=== PATIENT | female | born 1950 | race American Indian/Alaskan Native ===

== ENCOUNTER 2019-06-03 02:43 | Observation (INO) | payer MEDICARE ==
[2019-06-03] MEDS ORDERED: NITROGLYCERIN 0.4 MG TAB SUBL SL ONE (03:13)
--- NOTE | 2019-06-03 03:14 | Emergency Department Report ---
ED General Adult HPI - General Chief complaint: Allergic Reaction Stated complaint: ALLERGIC REACTION Time Seen by Provider: 06/03/19 03:01 Source: patient, EMS (verbal report received from EMS. EMS documentation not available at time of chart dictation ), RN notes reviewed Mode of arrival: Stretcher Limitations: No Limitations - History of Present Illness Initial comments: Primary care Dr.: Jamie Mock Past medical history: Hypertension, on lisinopril, question GERD/gastritis This is a pleasant 68-year-old female who is not known to this provider previously. She is brought to the hospital by emergency medical services for nontraumatic and resolving tongue swelling. Tongue swelling started at 12:30 in the morning. Emergency medical services gave the patient Benadryl, steroids, and subcutaneous epinephrine. Prior to tongue swelling, the patient states she was not having any complaints and reports that she was in her usual state of health. She indicates she was not having chest pain. X She denies DVT, and pulmonary embolism risk factors. Her swelling is improved, however, after receiving subcutaneous epinephrine, she developed central chest pressure, which is nonradiating. The patient reports no recent cardiac stress test or catheterization. As far she knows, her EKG is "normal." -: Sudden Location: mouth, chest Radiation: non-radiation Quality: constant Improves with: medication Worsens with: medication - Related Data Home Medications Medication Instructions Recorded Confirmed Last Taken Aspirin [Adult Aspirin] 81 mg PO DAILY 06/03/19 06/03/19 1 Day Ago ~06/02/19 Calcium Carbonate/Vitamin D3 1 tab PO DAILY 06/03/19 06/03/19 1 Day Ago [Calcium 600 with Vit D Chew Tb] ~06/02/19 Dicyclomine [Bentyl] 20 mg PO DAILY 06/03/19 06/03/19 1 Day Ago ~06/02/19 Loratadine 10 mg PO DAILY 06/03/19 06/03/19 1 Day Ago ~06/02/19 Meclizine [Antivert] 1 tab PO Q8HR 06/03/19 06/03/19 1 Day Ago ~06/02/19 PANTOPRAZOLE SODIUM (nf) [Protonix 40 tab PO DAILY 06/03/19 06/03/19 1 Day Ago GRANULES] ~06/02/19 Vitamin E 400 unit PO DAILY 06/03/19 06/03/19 1 Day Ago ~06/02/19 dilTIAZem HCl [Diltiazem 24Hr ER 240 mg PO DAILY 06/03/19 06/03/19 1 Day Ago (Cd)] ~06/02/19 Allergies Allergy/AdvReac Type Severity Reaction Status Date / Time codeine Allergy Rash Verified 06/03/19 02:58 lisinopril Allergy Angioedema Verified 06/03/19 02:59 ED Review of Systems ROS: Stated complaint: ALLERGIC REACTION Other details as noted in HPI Constitutional: denies: fever Eyes: denies: eye discharge ENT: other (as per history of present illness). denies: ear pain, throat pain, dental pain, hearing loss, epistaxis, congestion Respiratory: denies: cough Cardiovascular: chest pain Gastrointestinal: denies: vomiting Genitourinary: denies: dysuria Musculoskeletal: denies: as per HPI Skin: denies: lesions Neurological: denies: weakness Psychiatric: anxiety Hematological/Lymphatic: denies: easy bleeding ED Past Medical Hx - Past Medical History Hx Hypertension: Yes Hx CVA: Yes - Surgical History Additional Surgical History: hysterectomy, hernia repair, cataracts both eyes - Social History Smoking Status: Never Smoker Substance Use Type: None - Medications Home Medications: Home Medications Medication Instructions Recorded Confirmed Last Taken Type Aspirin [Adult Aspirin] 81 mg PO DAILY 06/03/19 06/03/19 1 Day Ago History ~06/02/19 Calcium Carbonate/Vitamin D3 1 tab PO DAILY 06/03/19 06/03/19 1 Day Ago History [Calcium 600 with Vit D Chew Tb] ~06/02/19 Dicyclomine [Bentyl] 20 mg PO DAILY 06/03/19 06/03/19 1 Day Ago History ~06/02/19 Loratadine 10 mg PO DAILY 06/03/19 06/03/19 1 Day Ago History ~06/02/19 Meclizine [Antivert] 1 tab PO Q8HR 06/03/19 06/03/19 1 Day Ago History ~06/02/19 PANTOPRAZOLE SODIUM (nf) [Protonix 40 tab PO DAILY 06/03/19 06/03/19 1 Day Ago History GRANULES] ~06/02/19 Vitamin E 400 unit PO DAILY 06/03/19 06/03/19 1 Day Ago History ~06/02/19 dilTIAZem HCl [Diltiazem 24Hr ER 240 mg PO DAILY 06/03/19 06/03/19 1 Day Ago History (Cd)] ~06/02/19 ED Physical Exam - General Limitations: No Limitations General appearance: alert, in no apparent distress - Head Head exam: Present: atraumatic, normocephalic - Eye Eye exam: Present: normal appearance, EOMI. Absent: nystagmus - ENT ENT exam: Present: normal orophraynx, mucous membranes moist, normal external ear exam, other (the patient is speaking in full sentences. There is no stridor or dysphonia. Left-sided lingual swelling is noted). Absent: normal exam - Neck Neck exam: Present: normal inspection, full ROM. Absent: tenderness, meningismus - Respiratory Respiratory exam: Present: normal lung sounds bilaterally. Absent: respiratory distress - Cardiovascular Cardiovascular Exam: Present: regular rate, normal rhythm, normal heart sounds. Absent: bradycardia, tachycardia, irregular rhythm, systolic murmur, diastolic murmur, rubs, gallop - GI/Abdominal GI/Abdominal exam: Present: soft. Absent: distended, tenderness, guarding, rebound, rigid, pulsatile mass - Extremities Exam Extremities exam: Present: normal inspection, full ROM, other (2+ pulses noted in the bilateral upper, lower extremities. There is no long bone tenderness. Musculoskeletal compartments are soft. The pelvis is stable.). Absent: pedal edema, joint swelling, calf tenderness - Back Exam Back exam: Present: normal inspection, full ROM. Absent: tenderness, CVA tenderness (R), CVA tenderness (L), paraspinal tenderness, vertebral tenderness - Neurological Exam Neurological exam: Present: alert, other (there is no facial droop. The tongue is midline. Extraocular movements are intact bilaterally. Patient speaking in full complete sentences. Shoulder shrug is intact bilaterally. Hearing is grossly intact bilaterally. Visual acuity intact to finger counting and color perception at a close distance. 5/5 strength 4 extremities. Sensation intact to light touch in 4 extremities.). Absent: motor sensory deficit - Psychiatric Psychiatric exam: Present: anxious - Skin Skin exam: Present: warm, dry, intact, normal color. Absent: rash ED Course Vital Signs 06/03/19 06/03/19 06/03/19 02:52 03:00 03:10 Temperature 98 F Pulse Rate 90 94 H 92 H Respiratory 18 26 H Rate Blood Pressure 170/80 170/80 O2 Sat by Pulse 98 98 Oximetry 06/03/19 06/03/19 03:34 04:00 Temperature Pulse Rate 92 H 96 H Respiratory 18 Rate Blood Pressure 170/80 127/74 O2 Sat by Pulse 95 Oximetry - Reevaluation(s) Reevaluation #1: 06/03/19 03:35 Parental diagnosis, including not limited to: LEAH inhibitor related angioedema, acute coronary syndrome, medication-related chest pain, GERD, gastritis, hiatal hernia, pneumonia Assessment and plan: 68-year-old female with 2 complaints Complaint #1, tongue swelling, likely related to LEAH inhibitor medication. She is phonating in complete sentences, saturating well, and protecting airway. She reports her tongue swelling is already improving. We will give the patient Pepcid, placed on a cancer center director, and observe. Complaint #2, chest discomfort after receiving subcutaneous epinephrine. She is hypertensive, with equal pulses in upper and lower extremities. She reports no DVT or pulmonary embolism risk factors and is low risk by well's criteria. Her EKG today is abnormal without prior for comparison. Chest pain in may be related to epinephrine administration, therefore, given advanced age, ca rdiovascular risk factor profile, the fact that the patient is moderate risk by heart score for major adverse cardiac event, we will admit the patient to the medical service for observation, and cardiac risk stratification. We discussed this with the patient who verbalizes understanding, and who is amenable to this plan of care. Reevaluation #2: 06/03/19 04:28 Laboratory studies reviewed and appreciated. Potassium supplementation ordered. Patient resting comfortably and in no acute distress. Hospital physician, Dr. Marshall accepted the patient to the medical service for airway observation, and cardiac risk stratification. ED Medical Decision Making - Lab Data Result diagrams: 06/03/19 03:29 06/03/19 03:29 Vital Signs 06/03/19 06/03/19 02:52 03:10 Temperature 98 F Pulse Rate 90 92 H Respiratory 18 Rate Blood Pressure 170/80 O2 Sat by Pulse 98 Oximetry - EKG Data -: EKG Interpreted by Nh EKG shows normal: sinus rhythm Rate: normal - EKG Data 06/03/19 03:37 There is no prior EKG available for comparison. This is a sinus rhythm, with a left axis deviation, the MD interval is 182 ms, the QTC is prolonged, there is a left axis deviation, there is a left bundle branch block noted, premature complex noted, EKG not consistent with Sgarbarossa criteris for stemi - Radiology Data Radiology results: image reviewed interpreted by me: X-ray of the chest is negative for acute disease. Critical care attestation.: If time is entered above; I have spent that time in minutes in the direct care of this critically ill patient, excluding procedure time. ED Disposition Clinical Impression: Abnormal EKG, Acute chest pain, Angioedema Disposition: OP ADMIT IP TO THIS HOSP Is pt being admited?: Yes Does the pt Need Aspirin: Yes Condition: Stable Instructions: Chest Pain (ED) Referrals: PRIMARY CARE, [Primary Care Provider] - 3-5 Days
[2019-06-03] MEDS ORDERED: PANTOPRAZOLE 40 MG INJ IV ONE (03:28)
[2019-06-03] MEDS ORDERED: FAMOTIDINE 20 MG/2 ML INJ IV ONE (03:29)
[2019-06-03 03:48] LABS: Hematocrit 39.1 % (30.3-42.9); Hemoglobin 12.6 gm/dl (10.1-14.3); Mean Corpuscular HGB Conc 32 % (30-34); Mean Corpuscular Volume 82 fl (79-97); Platelet Count 251 K/mm3 (140-440); Red Blood Count 4.74 M/mm3 (3.65-5.03); Red Cell Distribution Width 15.3 % (13.2-15.2)
[2019-06-03 03:58] LABS: INR 0.97 (0.87-1.13)
[2019-06-03 03:59] LABS: Partial Thromboplastin Time 24.7 Sec. (24.2-36.6)
[2019-06-03 04:13] LABS: Albumin 3.9 g/dL (3.9-5); Calcium 9.4 mg/dL (8.4-10.2)
[2019-06-03] MEDS ORDERED: MAGNESIUM SULFATE 2 GM/50 ML BAG IV ONE (04:21)
[2019-06-03] MEDS ORDERED: POTASSIUM CHLORIDE ER 20 MEQ TAB PO ONE (04:21)
[2019-06-03] MEDS ORDERED: ASPIRIN 81 MG TAB CHEW PO ONE (04:29)
[2019-06-03 04:52] LABS: Basophils % (Manual) 0 % (0.0-1.8); Total Cells Counted 100
[2019-06-03 04:53] LABS: Platelet Estimate Consistent w Auto; RBC Morphology Normal
[2019-06-03] MEDS: POTASSIUM CHLORIDE 10 MEQ 10 MEQ/100 ML BAG IV SCH ×4 (04:54→08:09)
--- NOTE | 2019-06-03 05:01 | XRay Report ---
CHEST 1 VIEW INDICATION / CLINICAL INFORMATION: Chest Pain. COMPARISON: None available. FINDINGS: SUPPORT DEVICES: None. HEART / MEDIASTINUM: Normal cardiac silhouette size with left ventricular configuration. LUNGS / PLEURA: No significant pulmonary or pleural abnormality. No pneumothorax. ADDITIONAL FINDINGS: No significant additional findings. IMPRESSION: 1. No acute pulmonary disease. Signer Name: Miroslava Vásquez MD Signed: 06/03/2019 4:57 AM Workstation Name: [id number]
[2019-06-03] MEDS ORDERED: ACETAMINOPHEN 325 MG TAB PO PRN (05:29)
[2019-06-03] MEDS ORDERED: MORPHINE 2 MG/1 ML INJ IV PRN (05:29)
[2019-06-03] MEDS ORDERED: ONDANSETRON 4 MG/2 ML INJ IV PRN (05:29)
--- NOTE | 2019-06-03 05:38 | History and Physical Report ---
History of Present Illness Date of examination: 06/03/19 History of present illness: 68-year-old history of hypertension LEAH inhibitor GERD comes emergency room with complaints of tongue swelling started at 12:15 AM. EMS was called and she was given steroids Benadryl, epinephrine in route to the hospital. On she came to the hospital she developed chest tightness which was constant, intensity without 10, no radiation, genitourinary failure exacerbated. 2. Denies any nausea vomiting, shortness, diaphoresis or palpitation Review Of Systems: Constitutional: no weight loss, fever, chills Ears, eyes, nose, mouth and throat: no nasal congestion, no nasal discharge, no sinus pressure, blurry vision, diplopia Neck: No neck pain or rigidity. Cardiovascular: No palpitations Respiratory: No shortness of breath, cough Gastrointestinal: No hematochezia, abdominal pain Genitourinary : no dysuria, frequency Musculoskeletal: no muscle ache , joint pain Integumentary: no rash, no pruritis Neurological: no parathesias, focal weakness Endocrine: no cold or heat intolerance, no polyuria or polydipsia Hematologic/Lymphatic: no easy bruising, no easy bleeding, no gland swelling Allergic/Immunologic: no urticaria, no angioedema. PAST MEDICAL HISTORY:hypertension GERD PAST SURGICAL HISTORY: Bladder tack, hysterectomy, cataract extraction FAMILY HISTORY:hypertension, diabetes SOCIAL HISTORY: Denies tobacco, drugs, alcohol Medications and Allergies Allergies Allergy/AdvReac Type Severity Reaction Status Date / Time codeine Allergy Rash Verified 06/03/19 02:58 lisinopril Allergy Angioedema Verified 06/03/19 02:59 Home Medications Medication Instructions Recorded Confirmed Last Taken Type Aspirin [Adult Aspirin] 81 mg PO DAILY 06/03/19 06/03/19 1 Day Ago History ~06/02/19 Calcium Carbonate/Vitamin D3 1 tab PO DAILY 06/03/19 06/03/19 1 Day Ago History [Calcium 600 with Vit D Chew Tb] ~06/02/19 Dicyclomine [Bentyl] 20 mg PO DAILY 06/03/19 06/03/19 1 Day Ago History ~06/02/19 Loratadine 10 mg PO DAILY 06/03/19 06/03/19 1 Day Ago History ~06/02/19 Meclizine [Antivert] 1 tab PO Q8HR 06/03/19 06/03/19 1 Day Ago History ~06/02/19 PANTOPRAZOLE SODIUM (nf) [Protonix 40 tab PO DAILY 06/03/19 06/03/19 1 Day Ago History GRANULES] ~06/02/19 Vitamin E 400 unit PO DAILY 06/03/19 06/03/19 1 Day Ago History ~06/02/19 dilTIAZem HCl [Diltiazem 24Hr ER 240 mg PO DAILY 06/03/19 06/03/19 1 Day Ago History (Cd)] ~06/02/19 Active Meds: Active Medications Acetaminophen (Tylenol) 650 mg PO Q4H PRN PRN Reason: Pain MILD(1-3)/Fever >100.5/MAHMOOD Diphenhydramine HCl (Benadryl) 25 mg IV Q6H PRN PRN Reason: Itching Enoxaparin Sodium (Enoxaparin) 40 mg SUB-Q QDAY@1000 KEILA Famotidine (Pepcid) 20 mg IV BID KEILA Potassium Chloride (Kcl 10meq/100ml) 10 meq in 100 mls @ 100 mls/hr IV Q1H KEILA Stop: 06/03/19 08:59 Last Admin: 06/03/19 04:54 Dose: 100 mls/hr Documented by: Methylprednisolone Sodium Succinate (Solu-Medrol) 125 mg IV Q6HR KEILA Morphine Sulfate (Morphine) 2 mg IV Q4H PRN PRN Reason: Pain, Moderate (4-6) Ondansetron HCl (Zofran) 4 mg IV Q8H PRN PRN Reason: Nausea And Vomiting Sodium Chloride (Sodium Chloride Flush Syringe 10 Ml) 10 ml IV BID KEILA Sodium Chloride (Sodium Chloride Flush Syringe 10 Ml) 10 ml IV PRN PRN PRN Reason: LINE FLUSH Exam - Physical Exam Narrative exam: General Apperance: The patient sitting in bed no acute distress HEENT: Normocephalic, atraumatic. Pupils equally round and reactive to light, extraocular movement intact, and no sclericterus or JVD or thyromegaly or nodule. Neck supple, no carotid bruit, mucous membranes moist, no exudate or erythema Heart: S1-S2, regular is rhythm Lungs: Clear to auscultation bilaterally, breathing comfortable Abdomen: Positive bowel sounds, soft, nontender, nondistended, no organomegaly Extremities: No edema cyanosis clubbing Skin: no rash, nodule, warm and dry Neuro:CN 2 -12 intact, motor/sensory intact, speech is fluent - Constitutional Vitals: Temp Pulse Resp BP Pulse Ox 98 F 89 18 127/74 95 06/03/19 02:52 06/03/19 04:30 06/03/19 04:30 06/03/19 04:30 06/03/19 04:30 Results - Labs CBC & Chem 7: 06/03/19 03:29 06/03/19 03:29 Labs: Abnormal lab results 06/03/19 06/03/19 Range/Units 03:29 03:29 WBC 19.6 H (4.5-11.0) K/mm3 MCH 27 L (28-32) pg RDW 15.3 H (13.2-15.2) % Seg Neuts % (Manual) 73.0 H (40.0-70.0) % Seg Neutrophils # Man 14.3 H (1.8-7.7) K/mm3 Monocytes # (Manual) 1.4 H (0.0-0.8) K/mm3 Potassium 3.0 L (3.6-5.0) mmol/L Carbon Dioxide 21 L (22-30) mmol/L Glucose 226 H (65-100) mg/dL Total Creatine Kinase 173 H (30-135) units/L - Imaging and Cardiology Chest x-ray: report reviewed Assessment and Plan Assessment Angioedema Chest pain Steroid induce leukocytosis Hypertension Plan Admit to medicine Start high dose steroids, benadryl and pepcid Check cardiac enzymes,stress test Potassium repleted DVT prophalaxis
[2019-06-03 06:26] LABS: BUN/Creatinine Ratio 13; Blood Urea Nitrogen 13 mg/dL (7-17); Calcium 9.4 mg/dL (8.4-10.2); Hemolysis Index 12
[2019-06-03 06:27] LABS: Creatine Kinase MB 2.1 ng/mL (0.0-4.0)
[2019-06-03] MEDS ORDERED: REGADENOSON 0.4 MG/5 ML INJ IV ONE ×2 (06:51→06:56)
[2019-06-03] MEDS ORDERED: POTASSIUM CHLORIDE 10 MEQ 10 MEQ/100 ML BAG IV ONE ×2 (07:03→08:09)
[2019-06-03 07:22] LABS: Hematocrit 38.7 % (30.3-42.9); Hemoglobin 12.5 gm/dl (10.1-14.3); Mean Corpuscular HGB Conc 32 % (30-34); Mean Corpuscular Volume 83 fl (79-97); Platelet Count 221 K/mm3 (140-440); Red Blood Count 4.67 M/mm3 (3.65-5.03); Red Cell Distribution Width 15.3 % (13.2-15.2)
[2019-06-03 08:20] LABS: Eosinophils % (Manual) 0 % (0.0-4.3); Monocytes % (Manual) 0 % (0.0-7.3); Total Cells Counted 100
[2019-06-03 08:21] LABS: Platelet Estimate Consistent w Auto; RBC Morphology Normal
[2019-06-03] MEDS ORDERED: methylPREDNISolone Sod Succinate 125 MG/2 ML INJ IV SCH (10:00)
[2019-06-03] MEDS ORDERED: ENOXAPARIN 40 MG/0.4 ML INJ SUB-Q SCH (10:00)
[2019-06-03] MEDS ORDERED: ENOXAPARIN 30 MG/0.3 ML INJ SUB-Q SCH (10:00)
[2019-06-03] MEDS ORDERED: diphenhydrAMINE 50 MG/ML VIAL IV PRN (10:00)
[2019-06-03] MEDS ORDERED: FAMOTIDINE 20 MG/2 ML INJ IV SCH ×2 (10:00)
[2019-06-03 12:44] VITALS: BP 142/80
--- NOTE | 2019-06-03 18:31 | Discharge Summary ---
Providers - Providers Date of Admission: 06/03/19 04:53 Date of discharge: 06/03/19 Attending physician: SLIME BARBOSA Primary care physician: ART PREPARATOR Hospitalization Reason for admission: Angioedema, atypical Condition: Stable Pertinent studies: CXR Hospital course: 68-year-old history of hypertension LEAH inhibitor GERD comes emergency room with complaints of tongue swelling started at 12:15 AM. EMS was called and she was given steroids Benadryl, epinephrine in route to the hospital. On she came to the hospital she developed chest tightness which was constant, intensity without 10, no radiation, genitourinary failure exacerbated.Denies any nausea vomiting, shortness, diaphoresis or palpitation. Lisinopril was held,managed with high dose steroids and antihistamines.symptoms resolved Evaluated by cardiology,no stress test as patient had severe hypokalemia,which was corrected per protocol. Today patient is comfortable,no new complaints. Stable at discharge. Discharge Diagnosis: --Angioedema: sec to Lisinopril. Received,steroids,antihistamine and lisinopril discontinued Symptoms resolved --Severe Hypokalemia: Replenished and corrected --Atypcal Chest pain : resolved,evaluated by cardiology . No stress test as pt had severe hypokalemia. Cleared for DC by cardiology, out patient evaluation --Steroid induced leukocytosis: Closely monitor --Hypertension: moderate control Stable at discharge. Disposition: DC-01 TO HOME OR SELFCARE Time spent for discharge: 32min Core Measure Documentation - Palliative Care Palliative Care/ Comfort Measures: Not Applicable - Core Measures Any of the following diagnoses?: none Exam - Constitutional Vitals: Temp Pulse Resp BP Pulse Ox 98.1 F 105 H 20 142/80 98 06/03/19 08:37 06/03/19 12:41 06/03/19 12:11 06/03/19 12:41 06/03/19 14:13 General appearance: Present: no acute distress, well-nourished - EENT Eyes: Present: PERRL, EOM intact - Neck Neck: Present: supple, normal ROM - Respiratory Respiratory effort: normal Respiratory: bilateral: diminished, negative: rales, rhonchi, wheezing - Cardiovascular Rhythm: regular Heart Sounds: Present: S1 & S2 - Extremities Extremities: no ischemia, No edema - Abdominal General gastrointestinal: Present: soft, non-tender, non-distended, normal bowel sounds - Integumentary Integumentary: Present: clear, warm - Musculoskeletal Musculoskeletal: strength equal bilaterally, generalized weakness - Psychiatric Psychiatric: appropriate mood/affect, cooperative - Neurologic Neurologic: moves all extremities Plan Activity: advance as tolerated Diet: low salt Additional Instructions: If you have chest or shortness of breath contact M.D. or go to emergency room . Do not take lisinopril/ACEI, group of medications. You have have life-threatening allergy with lisinopril. Do not take Follow up with: PRIMARY MD ETELVINA [Primary Care Provider] - 3-5 Days SAMRA JAIMES MD [Staff Physician] - 7 Days Prescriptions: diphenhydrAMINE [Benadryl CAP] 25 mg PO Q8HR PRN #15 capsule PRN Reason: Itching predniSONE [Deltasone] 20 mg PO DAILY #4 tablet hydroCHLOROthiazide [Hctz] 12.5 mg PO QDAY #30 capsule
[2019-06-04] MEDS ORDERED: FAMOTIDINE 20 MG TAB PO SCH (10:00)
[2019-06-04] MEDS ORDERED: predniSONE 20 MG TAB PO SCH (10:00)
== END 2019-06-03 08:00 | disposition home or self-care (01) ==
LOC: ED 02:43 → 4A 04:53 → INTOOBSV 04:53
PROVIDERS: ADMIT Internal Medicine; ATTEND Internal Medicine
DX: T78.3XXA Angioneurotic edema, initial encounter (principal); I10 Essential (primary) hypertension; K21.9 Gastro-esophageal reflux disease without esophagitis; R07.89 Other chest pain; T38.0X5A Adverse effect of glucocorticoids and synthetic analogues, initial encounter; Z86.73 Personal history of transient ischemic attack (TIA), and cerebral infarction without residual deficits; Z98.41 Cataract extraction status, right eye; Z90.710 Acquired absence of both cervix and uterus; Z98.42 Cataract extraction status, left eye; Z79.82 Long term (current) use of aspirin; Z79.899 Other long term (current) drug therapy; Z88.5 Allergy status to narcotic agent; Z88.8 Allergy status to other drugs, medicaments and biological substances; Y92.008 Other place in unspecified non-institutional (private) residence as the place of occurrence of the external cause
CPT/HCPCS: 36415; 71045; 80048; 80053; 82550; 82553; 83036; 83735; 84132; 84484; 85007; 85025; 85610; 85730; 93005; 93010; 96365; 96372; 96374; 96375; 96376; 99285; C9113; G0378; J1650; J2785; J2930; J3475; J3480

== ENCOUNTER 2020-06-14 04:38 | Inpatient (IN) | payer MEDICARE, OTHER ==
[2020-06-14 06:06] LABS: Basophils # (Auto) 0.1 K/mm3 (0.0-0.1); Basophils % (Auto) 0.7 % (0.0-1.8); Eosinophils # (Auto) 0.3 K/mm3 (0.0-0.4); Eosinophils % (Auto) 3.3 % (0.0-4.3); Hematocrit 32.3 % (30.3-42.9); Hemoglobin 10.8 gm/dl (10.1-14.3); Lymphocytes # (Auto) 3.6 K/mm3 (1.2-5.4); Lymphocytes % (Auto) 35.5 % (13.4-35.0); Mean Corpuscular HGB Conc 33 % (30-34); Mean Corpuscular Volume 83 fl (79-97); Monocytes # (Auto) 0.6 K/mm3 (0.0-0.8); Monocytes % (Auto) 6.2 % (0.0-7.3); Platelet Count 296 K/mm3 (140-440); Red Blood Count 3.88 M/mm3 (3.65-5.03); Red Cell Distribution Width 18.5 % (13.2-15.2)
[2020-06-14 06:25] LABS: BUN/Creatinine Ratio 23; Blood Urea Nitrogen 23 mg/dL (7-17); Calcium 8.7 mg/dL (8.4-10.2); Hemolysis Index 2
--- NOTE | 2020-06-14 07:28 | Emergency Department Report ---
ED General Adult HPI - General Chief complaint: GI Bleed Stated complaint: RECTAL BLEEDING PUI?: No Time Seen by Provider: 06/14/20 06:58 Source: patient, RN notes reviewed, old records reviewed Mode of arrival: Ambulatory Limitations: No Limitations - History of Present Illness Initial comments: The patient was evaluated in the emergency department for symptoms described in the history of present illness. He/she was evaluated in the context of the global COVID-19 pandemic, which necessitated consideration that the patient might be at risk for infection with the virus that causes COVID-19. Institutional protocols and algorithms that pertain to the evaluation of patients at risk for COVID-19 are in a state of rapid change based on information released by regulatory bodies including the CDC and federal and state organizations. These policies and algorithms were followed during the patient's care in the emergency department. Please note that these policies, procedures and recommendations changed on a rapid basis. Patient is a pleasant 69-year-old female, whom I have evaluated in the past. Her past medical history includes stroke in 2002, with minimal residual deficits, renal insufficiency, diverticulosis, hypertension, hysterectomy. Patient reports that she had a colonoscopy in 2019, at [facility], but is not quite sure what her colonoscopy demonstrated. She presents today with a complaint of painless dark red blood per rectum times 3:00. Denies headache, neck pain, chest pain, abdominal pain, shortness of breath, urinary symptoms, hematemesis, fever, chills, abdominal pain, loss of taste, loss of smell. Does not take aspirin, Plavix, or systemic anticoagulation. Symptoms are constant for the past 5 hours. They are painless. They do not radiate anywhere. They do not have exacerbating or relieving factors. The patient denies additional injuries and additional complaints at this time. -: Sudden Severity scale (0 -10): 0 Consistency: constant Improves with: none Worsens with: none Associated Symptoms: denies other symptoms - Related Data Home Medications Medication Instructions Recorded Confirmed Last Taken Aspirin [Adult Aspirin] 81 mg PO DAILY 06/03/19 06/03/19 1 Day Ago ~06/02/19 Calcium Carbonate/Vitamin D3 1 tab PO DAILY 06/03/19 06/03/19 1 Day Ago [Calcium 600 with Vit D Chew Tb] ~06/02/19 Dicyclomine [Bentyl] 20 mg PO DAILY 06/03/19 06/03/19 1 Day Ago ~06/02/19 Latanoprost 0.005% 0.005 mg OTIC HS 06/03/19 06/03/19 1 Day Ago ~06/02/19 Loratadine 10 mg PO DAILY 06/03/19 06/03/19 1 Day Ago ~06/02/19 Meclizine [Antivert] 1 tab PO Q8HR 06/03/19 06/03/19 1 Day Ago ~06/02/19 PANTOPRAZOLE SODIUM (nf) [Protonix 40 tab PO DAILY 06/03/19 06/03/19 1 Day Ago GRANULES] ~06/02/19 Vitamin E 400 unit PO DAILY 06/03/19 06/03/19 1 Day Ago ~06/02/19 dilTIAZem HCl [Diltiazem 24Hr ER 240 mg PO DAILY 06/03/19 06/03/19 1 Day Ago (Cd)] ~06/02/19 Previous Rx's Medication Instructions Recorded Last Taken Type diphenhydrAMINE [Benadryl CAP] 25 mg PO Q8HR PRN #15 capsule 06/03/19 Unknown Rx hydroCHLOROthiazide [Hctz] 12.5 mg PO QDAY #30 capsule 06/03/19 Unknown Rx predniSONE [Deltasone] 20 mg PO DAILY #4 tablet 06/03/19 Unknown Rx Allergies Allergy/AdvReac Type Severity Reaction Status Date / Time codeine Allergy Rash Verified 06/03/19 02:58 lisinopril Allergy Angioedema Verified 06/03/19 02:59 ED Review of Systems ROS: Stated complaint: RECTAL BLEEDING Other details as noted in HPI Comment: All other systems reviewed and negative Gastrointestinal: hematochezia. denies: abdominal pain, hematemesis, melena ED Past Medical Hx - Past Medical History Previous Medical History?: Yes Hx Hypertension: Yes Hx CVA: Yes Additional medical history: Diverticulosis. Right hemiparisis - Surgical History Past Surgical History?: Yes Additional Surgical History: hysterectomy, hernia repair, cataracts both eyes - Social History Smoking Status: Former Smoker Substance Use Type: None - Medications Home Medications: Home Medications Medication Instructions Recorded Confirmed Last Taken Type Aspirin [Adult Aspirin] 81 mg PO DAILY 06/03/19 06/03/19 1 Day Ago History ~06/02/19 Calcium Carbonate/Vitamin D3 1 tab PO DAILY 06/03/19 06/03/19 1 Day Ago History [Calcium 600 with Vit D Chew Tb] ~06/02/19 Dicyclomine [Bentyl] 20 mg PO DAILY 06/03/19 06/03/19 1 Day Ago History ~06/02/19 Latanoprost 0.005% 0.005 mg OTIC HS 06/03/19 06/03/19 1 Day Ago History ~06/02/19 Loratadine 10 mg PO DAILY 06/03/19 06/03/19 1 Day Ago History ~06/02/19 Meclizine [Antivert] 1 tab PO Q8HR 06/03/19 06/03/19 1 Day Ago History ~06/02/19 PANTOPRAZOLE SODIUM (nf) [Protonix 40 tab PO DAILY 06/03/19 06/03/19 1 Day Ago History GRANULES] ~06/02/19 Vitamin E 400 unit PO DAILY 06/03/19 06/03/19 1 Day Ago History ~06/02/19 dilTIAZem HCl [Diltiazem 24Hr ER 240 mg PO DAILY 06/03/19 06/03/19 1 Day Ago History (Cd)] ~06/02/19 diphenhydrAMINE [Benadryl CAP] 25 mg PO Q8HR PRN #15 capsule 06/03/19 Unknown R x hydroCHLOROthiazide [Hctz] 12.5 mg PO QDAY #30 capsule 06/03/19 Unknown Rx predniSONE [Deltasone] 20 mg PO DAILY #4 tablet 06/03/19 Unknown Rx ED Physical Exam - General Limitations: No Limitations General appearance: alert, in no apparent distress - Head Head exam: Present: atraumatic, normocephalic - Eye Eye exam: Present: normal appearance, EOMI. Absent: nystagmus - ENT ENT exam: Present: normal exam, normal orophraynx, mucous membranes moist, normal external ear exam - Neck Neck exam: Present: normal inspection, full ROM. Absent: tenderness, meningismus - Respiratory Respiratory exam: Present: normal lung sounds bilaterally. Absent: respiratory distress, wheezes, rales, rhonchi, stridor, decreased breath sounds - Cardiovascular Cardiovascular Exam: Present: regular rate, normal rhythm, normal heart sounds. Absent: bradycardia, tachycardia, irregular rhythm, systolic murmur, diastolic murmur, rubs, gallop - GI/Abdominal GI/Abdominal exam: Present: soft. Absent: distended, tenderness, guarding, rebound, rigid, pulsatile mass - Rectal Rectal exam: Present: normal inspection, heme (+) stool, bloody stool, other (Chaperoned by mechanical assembly technician Lindsey Coleman) - Extremities Exam Extremities exam: Present: normal inspection, full ROM, other (2+ pulses noted in the bilateral upper and lower extremities. There is no palpable cord. negative Homans sign. Muscular compartments are soft. The pelvis is stable.). Absent: pedal edema, calf tenderness - Back Exam Back exam: Present: normal inspection, full ROM. Absent: tenderness, CVA tenderness (R), CVA tenderness (L), paraspinal tenderness, vertebral tenderness - Neurological Exam Neurological exam: Present: alert, other (No facial droop. Tongue midline. Extraocular movements intact bilaterally. Facial sensation intact to light touch in V1, V2, V3 distribution bilaterally. 5 and a 5 strength in 4 extremities. Sensation intact to light touch in 4 extremities.) - Psychiatric Psychiatric exam: Present: normal affect, normal mood - Skin Skin exam: Present: warm, dry, intact, normal color. Absent: rash ED Course Vital Signs 06/14/20 06/14/20 05:16 10:23 Temperature 98.1 F 98.0 F Pulse Rate 84 92 H Respiratory 18 20 Rate Blood Pressure 128/86 Blood Pressure 113/78 [Left] O2 Sat by Pulse 100 99 Oximetry - Reevaluation(s) Reevaluation #1: 06/14/20 07:57 Differential diagnosis, including but not limited to: Diverticulosis, angiodysplasia, malignancy, upper GI bleed, hemorrhoids Assessment and plan: 69-year-old female who was afebrile, with reassuring vital signs, with painless dark red blood per rectum for 5 hours. She appears to have a history of diverticulosis. She reports having had a colonoscopy last year. We will attempt to obtain old medical records. We will discuss with [facility] on-call. Liver panel, coagulation panel ordered on. Placed on monitoring manager, maintain n.p.o. status at this time. 06/14/20 07:57 06/14/20 08:10 Contacted gastroenterology on-call, Dr. Arcos, discussed patient's history, physical, pertinent laboratory studies, and physical exam findings. He agrees to follow in consultation, recommends clear liquid diet, repeat hemoglobin/hematocrit's 1130/12 AM. Hospital physician, Dr. Gates, to admit patient to the medical service. I discussed this plan of care with the patient, who is amenable to this plan of care. Medical records pending at this time. Medical decision makin-year-old female with multiple medical comorbidities, reported history of diverticulosis, Presenting with roselia dark red blood per rectum, exam not consistent or suggestive of internal hemorrhoid or external hemorrhoid, requires observation for serial H&H, monitoring of vital signs, and urgent subspecialty consultation. 06/14/20 08:12 ED Medical Decision Making - Lab Data Result diagrams: 06/14/20 11:40 06/14/20 05:36 Vital Signs 06/14/20 05:16 Temperature 98.1 F Pulse Rate 84 Respiratory 18 Rate Blood Pressure 113/78 [Left] O2 Sat by Pulse 100 Oximetry Lab Results 06/14/20 06/14/20 Range/Units 05:36 05:36 WBC 10.3 (4.5-11.0) K/mm3 RBC 3.88 (3.65-5.03) M/mm3 Hgb 10.8 (10.1-14.3) gm/dl Hct 32.3 (30.3-42.9) % MCV 83 (79-97) fl MCH 28 (28-32) pg MCHC 33 (30-34) % RDW 18.5 H (13.2-15.2) % Plt Count 296 (140-440) K/mm3 Lymph % (Auto) 35.5 H (13.4-35.0) % [place] % (Auto) 6.2 (0.0-7.3) % Eos % (Auto) 3.3 (0.0-4.3) % Baso % (Auto) 0.7 (0.0-1.8) % Lymph # (Auto) 3.6 (1.2-5.4) K/mm3 [place] # (Auto) 0.6 (0.0-0.8) K/mm3 Eos # (Auto) 0.3 (0.0-0.4) K/mm3 Baso # (Auto) 0.1 (0.0-0.1) K/mm3 Seg Neutrophils % 54.3 (40.0-70.0) % Seg Neutrophils # 5.6 (1.8-7.7) K/mm3 Sodium 140 (137-145) mmol/L Potassium 3.9 (3.6-5.0) mmol/L Chloride 103.8 (98-107) mmol/L Carbon Dioxide 28 (22-30) mmol/L Anion Gap 12 mmol/L BUN 23 H (7-17) mg/dL Creatinine 1.0 (0.6-1.2) mg/dL Estimated GFR > 60 ml/min BUN/Creatinine Ratio 23 % Glucose 120 H (65-100) mg/dL Calcium 8.7 (8.4-10.2) mg/dL - EKG Data -: EKG Interpreted by Me EKG shows normal: sinus rhythm Rate: normal - EKG Data When compared to previous EKG there are: no significant change 06/14/20 07:56 Sinus rhythm, 82 bpm, left axis deviation, left bundle branch block morphology, motion artifact, QTC 462 ms. Abnormal EKG. Not a STEMI. Unchanged from prior EKG from May 2019, although QRS duration has decreased when compared to prior EKG. Critical care attestation.: If time is entered above; I have spent that time in minutes in the direct care of this critically ill patient, excluding procedure time. ED Disposition Clinical Impression: LGI bleed Disposition: OP ADMIT IP TO THIS HOSP Is pt being admited?: Yes Does the pt Need Aspirin: No Condition: Good
[2020-06-14] MEDS ORDERED: SODIUM CHLORIDE 0.9% 500 ML 500 ML IV ONE (08:06)
[2020-06-14 08:21] LABS: Partial Thromboplastin Time 24.3 Sec. (24.2-36.6)
[2020-06-14 08:31] LABS: Alanine Aminotransferase 10 units/L (7-56); Albumin 3.8 g/dL (3.9-5)
[2020-06-14 08:33] LABS: Bilirubin,Direct < 0.2 mg/dL (0-0.2)
--- NOTE | 2020-06-14 12:20 | Gastroenterology Consultation ---
History of Present Illness - Reason for Consult Consult date: 06/14/20 Hematochezia Requesting physician: CHRISSY ELIZALDE - History of Present Illness There is a pleasant 69-year-old female medical history significant for prior diverticular bleed who presents with rectal bleeding Outside records obtained she had a colonoscopy in 2018 for significant rectal bleeding was found to have pancolonic diverticulosis and the bleeding was suspected to be diverticular in nature Patient reports similar presentation today to what happened 2 years ago She reports having 3 bowel movements with large amount of dark red blood associated with cramping when she needed to defecate the cramping was moderate lower abdomen worse with need to defecate better with passing stool She denies passing out or dizziness She reports no bowel movements since arriving in the room She denies any significant anticoagulation medication Medical history-hypertension dyslipidemia stroke reflux diverticulosis Surgical history-brain surgery Social history-denies tobacco or alcohol use Family history-denies colon cancer Obtained/updated/reviewed patient's current medicationsat this time. Medications and Allergies Allergies Allergy/AdvReac Type Severity Reaction Status Date / Time codeine Allergy Rash Verified 06/03/19 02:58 lisinopril Allergy Angioedema Verified 06/03/19 02:59 Home Medications Medication Instructions Recorded Confirmed Last Taken Type Aspirin [Adult Aspirin] 81 mg PO DAILY 06/03/19 06/03/19 1 Day Ago History ~06/02/19 Calcium Carbonate/Vitamin D3 1 tab PO DAILY 06/03/19 06/03/19 1 Day Ago History [Calcium 600 with Vit D Chew Tb] ~06/02/19 Dicyclomine [Bentyl] 20 mg PO DAILY 06/03/19 06/03/19 1 Day Ago History ~06/02/19 Latanoprost 0.005% 0.005 mg OTIC HS 06/03/19 06/03/19 1 Day Ago History ~06/02/19 Loratadine 10 mg PO DAILY 06/03/19 06/03/19 1 Day Ago History ~06/02/19 Meclizine [Antivert] 1 tab PO Q8HR 06/03/19 06/03/19 1 Day Ago History ~06/02/19 PANTOPRAZOLE SODIUM (nf) [Protonix 40 tab PO DAILY 06/03/19 06/03/19 1 Day Ago History GRANULES] ~06/02/19 Vitamin E 400 unit PO DAILY 06/03/19 06/03/19 1 Day Ago History ~06/02/19 dilTIAZem HCl [Diltiazem 24Hr ER 240 mg PO DAILY 06/03/19 06/03/19 1 Day Ago History (Cd)] ~06/02/19 diphenhydrAMINE [Benadryl CAP] 25 mg PO Q8HR PRN #15 capsule 06/03/19 Unknown Rx hydroCHLOROthiazide [Hctz] 12.5 mg PO QDAY #30 capsule 06/03/19 Unknown Rx predniSONE [Deltasone] 20 mg PO DAILY #4 tablet 06/03/19 Unknown Rx Review of Systems - Review of Systems All systems: negative (10 Systems reviewed and negative except as mentioned above in the history of present illness) Exam - Constitutional Vital Signs: Temp Pulse Resp BP Pulse Ox 98.0 F 92 H 20 128/86 99 06/14/20 10:23 06/14/20 10:23 06/14/20 10:23 06/14/20 10:23 06/14/20 10:23 General appearance: no acute distress - EENT Eyes: EOM intact ENT: hearing intact - Neck Neck: supple - Respiratory Respiratory effort: normal - Cardiovascular Rhythm: regular - Gastrointestinal General gastrointestinal: Present: soft, non-tender - Integumentary Integumentary: Present: dry - Neurologic Neurological: alert and oriented x3 - Psychiatric Psychiatric: appropriate mood/affect - Labs CBC & Chem 7: 06/14/20 05:36 06/14/20 05:36 Lab Results: Laboratory Results - last 24 hr 06/14/20 06/14/20 06/14/20 05:36 05:36 07:40 WBC 10.3 RBC 3.88 Hgb 10.8 Hct 32.3 MCV 83 MCH 28 MCHC 33 RDW 18.5 H Plt Count 296 Lymph % (Auto) 35.5 H [place] % (Auto) 6.2 Eos % (Auto) 3.3 Baso % (Auto) 0.7 Lymph # (Auto) 3.6 [place] # (Auto) 0.6 Eos # (Auto) 0.3 Baso # (Auto) 0.1 Seg Neutrophils % 54.3 Seg Neutrophils # 5.6 PT 13.1 INR 1.00 APTT 24.3 Sodium 140 Potassium 3.9 Chloride 103.8 Carbon Dioxide 28 Anion Gap 12 BUN 23 H Creatinine 1.0 Estimated GFR > 60 BUN/Creatinine Ratio 23 Glucose 120 H Calcium 8.7 Magnesium Total Bilirubin Direct Bilirubin AST ALT Alkaline Phosphatase Total Creatine Kinase Total Protein Albumin Albumin/Globulin Ratio 06/14/20 07:50 WBC RBC Hgb Hct MCV MCH MCHC RDW Plt Count Lymph % (Auto) [place] % (Auto) Eos % (Auto) Baso % (Auto) Lymph # (Auto) [place] # (Auto) Eos # (Auto) Baso # (Auto) Seg Neutrophils % Seg Neutrophils # PT INR APTT Sodium Potassium Chloride Carbon Dioxide Anion Gap BUN Creatinine Estimated GFR BUN/Creatinine Ratio Glucose Calcium Magnesium 2.10 Total Bilirubin 0.50 Direct Bilirubin < 0.2 AST 16 ALT 10 Alkaline Phosphatase 80 Total Creatine Kinase 61 Total Protein 7.0 Albumin 3.8 L Albumin/Globulin Ratio 1.2 Assessment and Plan Given recent colonoscopy May 2018 and patient presentation highest on the differential diagnosis is diverticular bleed. Diverticular bleeding especially in this patient with pancolonic diverticulosis will be difficult to isolate with a colonoscopy and clinically the bleeding appears to be stopped therefore, recommend monitoring clinically, follow-up rep eat hemoglobin which was just drawn If hemoglobin relatively stable and no more bleeding patient can be discharged tomorrow as the risk of rebleeding at that juncture will be relatively low If however patient has significant drop in hemoglobin or continued overt bleeding then we will plan on colonoscopy If however patient has severe bleeding with hemodynamic instability I recommend stat bleeding scan with interventional radiology consultation as they will have a higher likelihood of success in that clinical situation of isolating and treating the source of the bleeding than GI will - Patient Problems (1) LGI bleed Current Visit: Yes Status: Acute
[2020-06-14 12:43] LABS: Hematocrit 29.9 % (30.3-42.9); Hemoglobin 9.8 gm/dl (10.1-14.3)
[2020-06-14] MEDS ORDERED: POLYETHYLENE GLYCOL/ELECT SOLN 4000 ML PO ONE ×2 (12:44→16:00)
--- NOTE | 2020-06-14 12:47 | Event Note ---
Date: 06/14/20 Repeat hemoglobin shows a drop of 1 g. Therefore given last colonoscopy 2 years ago and significant decline in hemoglobin will plan on proceeding with colonoscopy tomorrow. Orders placed. Nurse informed
--- NOTE | 2020-06-14 13:09 | History and Physical Report ---
History of Present Illness Date of examination: 06/14/20 Date of admission: 06/14/20 08:33 Chief complaint: Hematochezia History of present illness: 69-year-old female with a medical history of CVA, hypertension, previous diverticular bleed who presented to the hospital with bright red blood per rectum on the morning of presentation. She denies any chest pain, palpitations, shortness of breath or dizziness. She had a sensation of nausea with the bowel movements. She denies any abdominal pain. She reported a history of similar episode of red blood per rectum about a year ago. In the ER, patient's hemoglobin was stable. Patient was thus admitted for further evaluation. GI was consulted from the ER. Past History Past Medical History: hypertension, stroke Past Surgical History: hysterectomy Social history: no significant social history Medications and Allergies Allergies Allergy/AdvReac Type Severity Reaction Status Date / Time codeine Allergy Rash Verified 06/03/19 02:58 lisinopril Allergy Angioedema Verified 06/03/19 02:59 Home Medications Medication Instructions Recorded Confirmed Last Taken Type Aspirin [Adult Aspirin] 81 mg PO DAILY 06/03/19 06/03/19 1 Day Ago History ~06/02/19 Calcium Carbonate/Vitamin D3 1 tab PO DAILY 06/03/19 06/03/19 1 Day Ago History [Calcium 600 with Vit D Chew Tb] ~06/02/19 Dicyclomine [Bentyl] 20 mg PO DAILY 06/03/19 06/03/19 1 Day Ago History ~06/02/19 Latanoprost 0.005% 0.005 mg OTIC HS 06/03/19 06/03/19 1 Day Ago History ~06/02/19 Loratadine 10 mg PO DAILY 06/03/19 06/03/19 1 Day Ago History ~06/02/19 Meclizine [Antivert] 1 tab PO Q8HR 06/03/19 06/03/19 1 Day Ago History ~06/02/19 PANTOPRAZOLE SODIUM (nf) [Protonix 40 tab PO DAILY 06/03/19 06/03/19 1 Day Ago History GRANULES] ~06/02/19 Vitamin E 400 unit PO DAILY 06/03/19 06/03/19 1 Day Ago History ~06/02/19 dilTIAZem HCl [Diltiazem 24Hr ER 240 mg PO DAILY 06/03/19 06/03/19 1 Day Ago History (Cd)] ~06/02/19 diphenhydrAMINE [Benadryl CAP] 25 mg PO Q8HR PRN #15 capsule 06/03/19 Unknown Rx hydroCHLOROthiazide [Hctz] 12.5 mg PO QDAY #30 capsule 06/03/19 Unknown Rx predniSONE [Deltasone] 20 mg PO DAILY #4 tablet 06/03/19 Unknown Rx Review of Systems All systems: negative (Hematochezia) Exam - Constitutional Vitals: Temp Pulse Resp BP Pulse Ox 98.0 F 92 H 20 128/86 99 06/14/20 10:23 06/14/20 10:23 06/14/20 10:23 06/14/20 10:23 06/14/20 10:23 General appearance: Present: no acute distress, well-nourished - EENT Eyes: Present: PERRL ENT: hearing intact, clear oral mucosa - Neck Neck: Present: supple, normal ROM - Respiratory Respiratory effort: normal Respiratory: bilateral: CTA - Cardiovascular Heart Sounds: Present: S1 & S2. Absent: rub, click - Extremities Extremities: pulses symmetrical, No edema Peripheral Pulses: within normal limits - Abdominal General gastrointestinal: Present: soft, non-tender, non-distended, normal bowel sounds Female genitourinary: Present: normal - Integumentary Integumentary: Present: clear, warm, dry - Musculoskeletal Musculoskeletal: gait normal, strength equal bilaterally - Psychiatric Psychiatric: appropriate mood/affect, intact judgment & insight - Neurologic Neurologic: CNII-XII intact, moves all extremities Results - Labs CBC & Chem 7: 06/14/20 11:40 06/14/20 05:36 Labs: Abnormal lab results 06/14/20 06/14/20 06/14/20 Range/Units 05:36 05:36 07:50 Hgb (10.1-14.3) gm/dl Hct (30.3-42.9) % RDW 18.5 H (13.2-15.2) % Lymph % (Auto) 35.5 H (13.4-35.0) % BUN 23 H (7-17) mg/dL Glucose 120 H (65-100) mg/dL Albumin 3.8 L (3.9-5) g/dL 06/14/20 Range/Units 11:40 Hgb 9.8 L (10.1-14.3) gm/dl Hct 29.9 L (30.3-42.9) % RDW (13.2-15.2) % Lymph % (Auto) (13.4-35.0) % BUN (7-17) mg/dL Glucose (65-100) mg/dL Albumin (3.9-5) g/dL Assessment and Plan Assessment and plan ---Bright red blood per rectum GI has been consulted Monitor hemoglobin Patient may need colonoscopy ---Hypertension Hold losartan Okay to continue diltiazem ---Chronic anemia Trend hemoglobin ---DVT prophylaxis SCDs only. No anticoagulation due to ongoing GI bleed
[2020-06-14] MEDS ORDERED: ONDANSETRON 4 MG/2 ML INJ IV PRN (13:19)
[2020-06-14] MEDS ORDERED: ACETAMINOPHEN 325 MG TAB PO PRN (13:19)
[2020-06-14] MEDS ORDERED: NAPHAZOLINE/PHENIRAMINE 0.025/0.3% OPHTH SOLN 15 ML OU PRN (17:25)
[2020-06-15 06:30] LABS: Basophils # (Auto) 0.1 K/mm3 (0.0-0.1); Basophils % (Auto) 0.7 % (0.0-1.8); Eosinophils # (Auto) 0.3 K/mm3 (0.0-0.4); Hematocrit 25.2 % (30.3-42.9); Hemoglobin 8.1 gm/dl (10.1-14.3); Lymphocytes # (Auto) 3.8 K/mm3 (1.2-5.4); Lymphocytes % (Auto) 34.7 % (13.4-35.0); Mean Corpuscular HGB Conc 32 % (30-34); Mean Corpuscular Volume 84 fl (79-97); Monocytes # (Auto) 0.8 K/mm3 (0.0-0.8); Platelet Count 262 K/mm3 (140-440); Red Blood Count 2.99 M/mm3 (3.65-5.03); Red Cell Distribution Width 18.6 % (13.2-15.2)
[2020-06-15 06:55] LABS: Alanine Aminotransferase 13 units/L (7-56); Albumin 3.6 g/dL (3.9-5); BUN/Creatinine Ratio 18; Blood Urea Nitrogen 16 mg/dL (7-17); Calcium 8.6 mg/dL (8.4-10.2); Hemolysis Index 10
[2020-06-15] MEDS ORDERED: SODIUM CHLORIDE 0.9% 1000 ML 1,000 ML IV SCH (12:00)
[2020-06-15] MEDS ORDERED: SODIUM CHLORIDE 0.9% 1000 ML 1,000 ML ONE (15:19)
[2020-06-15] MEDS ORDERED: WATER FOR IRRIG STERILE 1,000 ML BOTTLE ONE (15:20)
[2020-06-15] MEDS ORDERED: WATER FOR IRRIG STERILE 250 ML BOTTLE IR ONE (15:20)
[2020-06-15] MEDS ORDERED: LIDOCAINE MPF (2%) 20 MG/1 ML VIAL 5 ML ONE (15:30)
[2020-06-15] MEDS ORDERED: propofoL 200 MG/20 ML VIAL IV ONE ×2 (15:30→15:56)
--- NOTE | 2020-06-15 15:31 | Anesthesia Consultation ---
Anesthesia Consult and Med Hx Date of service: 06/15/20 - Airway ROM Head & Neck: Adequate Mental/Hyoid Distance: Adequate Mallampati Class: Class III Intubation Access Assessment: Possibly Difficult - Pulmonary Exam CTA: Yes - Cardiac Exam Cardiac Exam: RRR (low grade tachycardia) - Pre-Operative Health Status ASA Pre-Surgery Classification: ASA3 Proposed Anesthetic Plan: MAC - Pulmonary Hx Smoking: Yes (quit 2002) Hx Respiratory Symptoms: No - Cardiovascular System Hx Hypertension: Yes Hx Heart Attack/AMI: No Hx Percutaneous Transluminal Coronary Angioplasty (PTCA): No - Central Nervous System CVA: Yes (2002 w/ residual right sided weakness) - Gastrointestinal Hx Gastroesophageal Reflux Disease: Yes - Endocrine Hx Renal Disease: No (renal insufficiency noted in chart but eGFR normal this admission) Hx Liver Disease: No Hx Insulin Dependent Diabetes: No Hx Non-Insulin Dependent Diabetes: No Hx Thyroid Disease: No - Hematic Hx Anemia: Yes - Other Systems Hx Obesity: No - Additional Comments Anesthesia Medical History Comments: No hx anesthetic complications. Colonoscopy for rectal bleeding.
--- NOTE | 2020-06-15 15:31 | Anesthesia Day of Surgery ---
Anesthesia Day of Surgery - Day of Surgery Patient Examined: Yes Patient H&P Reviewed: Yes Patient is NPO: Yes
--- NOTE | 2020-06-15 16:37 | Operative Report ---
Operative Report Operative Report: DOS: 06/15/2020 SURGEON: Eliud Arcos MD COLONOSCOPY REPORT PREOPERATIVE AND POSTOPERATIVE DIAGNOSIS: GI BLEED DESCRIPTION OF PROCEDURE: The colonoscope was passed to the terminal ileum as identified by the ileal tissue. Scope was carefully withdrawn. Retroflexion was not able to be performed in the rectum due to small rectal vault. At the end of procedure, the scope was cleaned using normal technique. Vital signs monitored continuously throughout. SEDATION: Provided by Anesthesiology Services. Quality of the prep was poor COMPLICATIONS: None. ESTIMATED BLOOD LOSS: No active bleeding during the procedure FINDINGS: * Normal terminal ileum with no blood visualized in the terminal ileum * Large amount of fresh red blood throughout the entire colon, significantly limiting views. Extensive amount of flushing and suctioning was performed in order to cleanse the colon as much as possible to obtain adequate views. There was significant diverticulosis seen throughout the sigmoid descending transverse and distal ascending colon. However, no active blood loss was seen RECOMMENDATIONS: * Clinical picture consistent with diverticular bleed. Patient appears to have bled this afternoon, but the bleeding stopped by the time the procedure happened. * Therefore, start patient on clear liquid diet, trend hemoglobin, monitor clinically. If patient develops severe clinical bleeding (not mild, as I do expect patient to pass some blood rectally for the next few hours as she cleanses her colon of the residual blood that is left) especially with changes in hemodynamics, please send for stat CT angiography (CT GI bleed protocol) and if positive consult interventional radiology stat
--- NOTE | 2020-06-15 16:42 | Progress Note ---
Assessment and Plan Assessment and plan: Assessment and plan --- Acute on chronic blood loss anemia Hemoglobin dropped to 8.1 today. Reportedly had bleeding yesterday. Continue to monitor H&H ---Bright red blood per rectum Hemoglobin is 8.1 today. Plan for colonoscopy today ---Hypertension Hold losartan for now due to GI bleed Okay to continue diltiazem ---DVT prophylaxis SCDs only. No anticoagulation due to ongoing GI bleed History Interval history: 69-year-old female with a previous history of diverticular bleed admitted with bright red blood per rectum. Hemoglobin 10 on admission. GI was consulted. Plan to have colonoscopy today. Hemoglobin 8.1 today Patient seen and examined at bedside this morning Has no complaints Awaiting colonoscopy Hospitalist Physical - Physical exam Narrative exam: VITAL SIGNS: Reviewed. GENERAL: Awake and alert on response to questions HEAD: No signs of head trauma. EYES: Pupils are equal. Extraocular motions intact. EARS: Hearing grossly intact. MOUTH: Oropharynx is normal. NECK: No adenopathy, no JVD. CHEST: Chest with diminished breath sounds bilaterally. No wheezes, rales, or rhonchi. CARDIAC: Regular rate and rhythm. S1 and S2, without murmurs, gallops, or rubs. VASCULAR: No Edema. Peripheral pulses normal and equal in all extremities. ABDOMEN: Soft, non tender and non distended. No rebound or guarding, and no masses palpated. Bowel Sounds normal. MUSCULOSKELETAL: Good range of motion of all major joints. Extremities without clubbing, cyanosis or edema. NEUROLOGIC EXAM: Alert and oriented x3. No focal neurologic deficits PSYCHIATRIC: Stable mood SKIN: No obvious lesions - Constitutional Vitals: Temp Pulse Resp BP Pulse Ox 97.8 F 90 17 118/64 100 06/15/20 16:07 06/15/20 16:33 06/15/20 16:33 06/15/20 16:33 06/15/20 16:33 Results - Labs CBC & Chem 7: 06/15/20 06:05 06/15/20 06:05 Labs: Laboratory Last Values WBC 10.9 K/mm3 (4.5-11.0) 06/15/20 06:05 RBC 2.99 M/mm3 (3.65-5.03) L 06/15/20 06:05 Hgb 8.1 gm/dl (10.1-14.3) L 06/15/20 06:05 Hct 25.2 % (30.3-42.9) L 06/15/20 06:05 MCV 84 fl (79-97) 06/15/20 06:05 MCH 27 pg (28-32) L 06/15/20 06:05 MCHC 32 % (30-34) 06/15/20 06:05 RDW 18.6 % (13.2-15.2) H 06/15/20 06:05 Plt Count 262 K/mm3 (140-440) 06/15/20 06:05 Lymph % (Auto) 34.7 % (13.4-35.0) 06/15/20 06:05 [place] % (Auto) 7.0 % (0.0-7.3) 06/15/20 06:05 Eos % (Auto) 3.0 % (0.0-4.3) 06/15/20 06:05 Baso % (Auto) 0.7 % (0.0-1.8) 06/15/20 06:05 Lymph # (Auto) 3.8 K/mm3 (1.2-5.4) 06/15/20 06:05 [place] # (Auto) 0.8 K/mm3 (0.0-0.8) 06/15/20 06:05 Eos # (Auto) 0.3 K/mm3 (0.0-0.4) 06/15/20 06:05 Baso # (Auto) 0.1 K/mm3 (0.0-0.1) 06/15/20 06:05 Seg Neutrophils % 54.6 % (40.0-70.0) 06/15/20 06:05 Seg Neutrophils # 5.9 K/mm3 (1.8-7.7) 06/15/20 06:05 PT 13.1 Sec. (12.2-14.9) 06/14/20 07:40 INR 1.00 (0.87-1.13) 06/14/20 07:40 APTT 24.3 Sec. (24.2-36.6) 06/14/20 07:40 Sodium 142 mmol/L (137-145) 06/15/20 06:05 Potassium 3.2 mmol/L (3.6-5.0) L 06/15/20 06:05 Chloride 106.7 mmol/L (98-107) 06/15/20 06:05 Carbon Dioxide 22 mmol/L (22-30) 06/15/20 06:05 Anion Gap 17 mmol/L 06/15/20 06:05 BUN 16 mg/dL (7-17) 06/15/20 06:05 Creatinine 0.9 mg/dL (0.6-1.2) 06/15/20 06:05 Estimated GFR > 60 ml/min 06/15/20 06:05 BUN/Creatinine Ratio 18 % 06/15/20 06:05 Glucose 106 mg/dL (65-100) H 06/15/20 06:05 Calcium 8.6 mg/dL (8.4-10.2) 06/15/20 06:05 Magnesium 2.10 mg/dL (1.7-2.3) 06/14/20 07:50 Total Bilirubin 0.50 mg/dL (0.1-1.2) 06/15/20 06:05 Direct Bilirubin < 0.2 mg/dL (0-0.2) 06/14/20 07:50 AST 23 units/L (5-40) 06/15/20 06:05 ALT 13 units/L (7-56) 06/15/20 06:05 Alkaline Phosphatase 72 units/L (35-129) 06/15/20 06:05 Total Creatine Kinase 61 units/L (30-135) 06/14/20 07:50 Total Protein 6.3 g/dL (6.3-8.2) 06/15/20 06:05 Albumin 3.6 g/dL (3.9-5) L 06/15/20 06:05 Albumin/Globulin Ratio 1.3 % 06/15/20 06:05 Philip/IV: Voiding Method Toilet IV Catheter Type [Right Hand] INT / Saline Lock Active Medications - Current Medications Current Medications: Generic Name Dose Route Start Last Admin Trade Name Freq PRN Reason Stop Dose Admin Acetaminophen 650 mg 06/14/20 13:19 Tylenol PO Q4H PRN Pain MILD(1-3)/Fever >100.5/MAHMOOD Diltiazem HCl 240 mg 06/15/20 10:00 Cardizem Cd PO DAILY KEILA Sodium Chloride 1,000 mls @ 50 mls/hr 06/15/20 12:00 Nacl 0.9% 1000 Ml IV DIRECT KEILA Potassium Chloride 10 meq in 100 mls @ 100 mls/hr 06/15/20 15:30 Kcl 10meq/100ml IV 06/15/20 19:29 Q1H KEILA Naphazoline HCl/Pheniramine Maleate 2 drops 06/14/20 17:25 Visine-A OU Q6H PRN Allergic Reaction Ondansetron HCl 4 mg 06/14/20 13:19 Zofran IV Q8H PRN Nausea And Vomiting Sodium Chloride 10 ml 06/14/20 22:00 06/14/20 23:32 Sodium Chloride Flush Syringe 10 Ml IV 10 ml BID KEILA Administration Sodium Chloride 10 ml 06/14/20 13:19 Sodium Chloride Flush Syringe 10 Ml IV PRN PRN LINE FLUSH
[2020-06-15] MEDS: dilTIAZem CD 240 MG CAP PO SCH (16:50)
--- NOTE | 2020-06-15 16:55 | Post Anesthesia Evaluation ---
- Post Anesthesia Evaluation Patient Participated: Yes Airway Patent: Yes Stable Respiratory Function: Yes Nausea/Vomiting: No Temp > 96.8F: Yes Pain Manageable: Yes Adequeate Hydration: Yes Anesthesia Complications: No
[2020-06-15 23:03] LABS: Hematocrit 20.1 % (30.3-42.9); Hemoglobin 6.5 gm/dl (10.1-14.3)
[2020-06-15] MEDS: POTASSIUM CHLORIDE 10 MEQ 10 MEQ/100 ML BAG IV SCH (23:27)
[2020-06-16] MEDS: POTASSIUM CHLORIDE 10 MEQ 10 MEQ/100 ML BAG IV SCH ×3 (00:19→04:00)
[2020-06-16] MEDS ORDERED: SODIUM CHLORIDE 0.9% 500 ML 500 ML IV ONE ×2 (04:41→10:03)
[2020-06-16 06:28] LABS: Hemoglobin 5.7 gm/dl (10.1-14.3)
[2020-06-16] MEDS: dilTIAZem CD 240 MG CAP PO SCH (11:10)
--- NOTE | 2020-06-16 15:43 | Progress Note ---
Assessment and Plan Assessment and plan: Acute on chronic blood loss anemia Hemoglobin dropped. Reportedly had bleeding this am (06/16) Continue to monitor H&H Rectal bleeding Colonoscopy yesterday(06/15) with Normal terminal ileum with no blood visualized in the terminal ileum and Large amount of fresh red blood throughout the entire colon, significantly limiting views. Extensive amount of flushing and suctioning was performed in order to cleanse the colon as much as possible to obtain adequate views. There was significant diverticulosis seen throughout the sigmoid descending transverse and distal ascending colon. However, no active blood loss was seen Hypertension Hold losartan for now due to GI bleed Okay to continue diltiazem DVT prophylaxis SCDs only. No anticoagulation due to ongoing GI bleed 06/16. Cont. PRBCs. Recheck CBC. Await GI recs History Interval history: Pt. reported 3 maroon colored stools this am. Hospitalist Physical - Constitutional Vitals: Temp Pulse Resp BP Pulse Ox 98.0 F 83 18 128/74 99 06/16/20 11:50 06/16/20 11:50 06/16/20 11:50 06/16/20 11:50 06/16/20 11:50 General appearance: Present: no acute distress, well-nourished - EENT Eyes: Present: PERRL, EOM intact ENT: hearing intact, clear oral mucosa, dentition normal - Neck Neck: Present: supple, normal ROM - Respiratory Respiratory effort: normal Respiratory: bilateral: CTA - Cardiovascular Rhythm: regular Heart Sounds: Present: S1 & S2. Absent: gallop, rub - Extremities Extremities: no ischemia, No edema, Full ROM - Abdominal General gastrointestinal: soft, non-tender, non-distended, normal bowel sounds - Integumentary Integumentary: Present: clear, warm, dry - Neurologic Neurologic: CNII-XII intact, moves all extremities Results - Labs CBC & Chem 7: 06/16/20 05:46 06/15/20 06:05 Labs: Laboratory Last Values WBC 10.9 K/mm3 (4.5-11.0) 06/15/20 06:05 RBC 2.99 M/mm3 (3.65-5.03) L 06/15/20 06:05 Hgb 5.7 gm/dl (10.1-14.3) L* 06/16/20 05:46 Hct 18.0 % (30.3-42.9) L* 06/16/20 05:46 MCV 84 fl (79-97) 06/15/20 06:05 MCH 27 pg (28-32) L 06/15/20 06:05 MCHC 32 % (30-34) 06/15/20 06:05 RDW 18.6 % (13.2-15.2) H 06/15/20 06:05 Plt Count 262 K/mm3 (140-440) 06/15/20 06:05 Lymph % (Auto) 34.7 % (13.4-35.0) 06/15/20 06:05 [place] % (Auto) 7.0 % (0.0-7.3) 06/15/20 06:05 Eos % (Auto) 3.0 % (0.0-4.3) 06/15/20 06:05 Baso % (Auto) 0.7 % (0.0-1.8) 06/15/20 06:05 Lymph # (Auto) 3.8 K/mm3 (1.2-5.4) 06/15/20 06:05 [place] # (Auto) 0.8 K/mm3 (0.0-0.8) 06/15/20 06:05 Eos # (Auto) 0.3 K/mm3 (0.0-0.4) 06/15/20 06:05 Baso # (Auto) 0.1 K/mm3 (0.0-0.1) 06/15/20 06:05 Seg Neutrophils % 54.6 % (40.0-70.0) 06/15/20 06:05 Seg Neutrophils # 5.9 K/mm3 (1.8-7.7) 06/15/20 06:05 PT 13.1 Sec. (12.2-14.9) 06/14/20 07:40 INR 1.00 (0.87-1.13) 06/14/20 07:40 APTT 24.3 Sec. (24.2-36.6) 06/14/20 07:40 Sodium 142 mmol/L (137-145) 06/15/20 06:05 Potassium 3.2 mmol/L (3.6-5.0) L 06/15/20 06:05 Chloride 106.7 mmol/L (98-107) 06/15/20 06:05 Carbon Dioxide 22 mmol/L (22-30) 06/15/20 06:05 Anion Gap 17 mmol/L 06/15/20 06:05 BUN 16 mg/dL (7-17) 06/15/20 06:05 Creatinine 0.9 mg/dL (0.6-1.2) 06/15/20 06:05 Estimated GFR > 60 ml/min 06/15/20 06:05 BUN/Creatinine Ratio 18 % 06/15/20 06:05 Glucose 106 mg/dL (65-100) H 06/15/20 06:05 Calcium 8.6 mg/dL (8.4-10.2) 06/15/20 06:05 Magnesium 2.10 mg/dL (1.7-2.3) 06/14/20 07:50 Total Bilirubin 0.50 mg/dL (0.1-1.2) 06/15/20 06:05 Direct Bilirubin < 0.2 mg/dL (0-0.2) 06/14/20 07:50 AST 23 units/L (5-40) 06/15/20 06:05 ALT 13 units/L (7-56) 06/15/20 06:05 Alkaline Phosphatase 72 units/L (35-129) 06/15/20 06:05 Total Creatine Kinase 61 units/L (30-135) 06/14/20 07:50 Total Protein 6.3 g/dL (6.3-8.2) 06/15/20 06:05 Albumin 3.6 g/dL (3.9-5) L 06/15/20 06:05 Albumin/Globulin Ratio 1.3 % 06/15/20 06:05 Blood Type A POSITIVE 06/16/20 05:42 Antibody Screen Negative 06/16/20 05:42 Crossmatch See Detail 06/16/20 05:42 Philip/IV: Voiding Method Toilet IV Catheter Type [Right Hand] INT / Saline Lock Active Medications - Current Medications Current Medications: Generic Name Dose Route Start Last Admin Trade Name Freq PRN Reason Stop Dose Admin Acetaminophen 650 mg 06/14/20 13:19 06/15/20 20:01 Tylenol PO 650 mg Q4H PRN Administration Pain MILD(1-3)/Fever >100.5/MAHMOOD Diltiazem HCl 240 mg 06/15/20 10:00 06/16/20 11:10 Cardizem Cd PO 240 mg DAILY KEILA Administration Sodium Chloride 1,000 mls @ 50 mls/hr 06/15/20 12:00 06/15/20 17:05 Nacl 0.9% 1000 Ml IV 50 mls/hr DIRECT KEILA Administration Naphazoline HCl/Pheniramine Maleate 2 drops 06/14/20 17:25 Visine-A OU Q6H PRN Allergic Reaction Ondansetron HCl 4 mg 06/14/20 13:19 Zofran IV Q8H PRN Nausea And Vomiting Sodium Chloride 10 ml 06/14/20 22:00 06/14/20 23:32 Sodium Chloride Flush Syringe 10 Ml IV 10 ml BID KEILA Administration Sodium Chloride 10 ml 06/14/20 13:19 Sodium Chloride Flush Syringe 10 Ml IV PRN PRN LINE FLUSH
--- NOTE | 2020-06-16 17:18 | Gastroenterology Progress Note ---
Assessment and Plan Patient's hemoglobin dropped significantly unclear if she had a third bleed or if this was just the equilibration from the second bleed that she had yesterday Regardless, she is not clinically bleeding anymore given that she has had no bow el movements in nearly 12 hours Therefore, recommend transfuse to goal hemoglobin of 7 Continue to monitor clinically very closely Clear liquid diet for the rest of today if she has no more bleeding can advance as tolerated tomorrow If hemoglobin relatively stable and no more bleeding patient can be discharged AM If however patient has severe bleeding with hemodynamic instability I recommend stat bleeding scan with interventional radiology consultation as they will have a higher likelihood of success in that clinical situation of isolating and treating the source of the bleeding than GI will - Patient Problems (1) LGI bleed Current Visit: Yes Status: Acute Subjective Date of service: 06/16/20 Principal diagnosis: GI bleed Interval history: Patient reports 3 dark bloody bowel movements around 4 AM this morning she reports no bowel movement since then she denies shortness of breath or abdominal pain Objective - Constitutional Vitals: Temp Pulse Resp BP Pulse Ox 98.0 F 83 18 128/74 99 06/16/20 11:50 06/16/20 11:50 06/16/20 11:50 06/16/20 11:50 06/16/20 11:50 General appearance: no acute distress - EENT ENT: hearing intact - Respiratory Respiratory effort: normal - Gastrointestinal General gastrointestinal: Present: soft - Integumentary Integumentary: Present: dry - Neurologic Neurological: alert and oriented x3 - Labs CBC & Chem 7: 06/16/20 05:46 06/15/20 06:05 Labs: Laboratory Results - last 24 hr 06/15/20 06/16/20 06/16/20 22:13 05:42 05:46 Hgb 6.5 L 5.7 L* Hct 20.1 L 18.0 L* Blood Type A POSITIVE Antibody Screen Negative Crossmatch See Detail
[2020-06-17 01:19] LABS: Hematocrit 30.5 % (30.3-42.9); Hemoglobin 10.1 gm/dl (10.1-14.3)
--- NOTE | 2020-06-17 08:32 | Discharge Summary ---
Providers - Providers Date of Admission: 06/16/20 12:17 Date of discharge: 06/19/20 Attending physician: RONAL VALLES 06/14/20 07:55 Consult to Physician [CONS] Urgent Comment: Consulting Provider: JUANITA RICK Physician Instructions: Reason For Exam: lgib Primary care physician: RADIO DESPATCHER Hospitalization Reason for admission: GI bleed Condition: Good Procedures: Colonoscopy Hospital course: 69-year-old female with a medical history of CVA, hypertension, previous dive rticular bleed who presented to the hospital with bright red blood per rectum on the morning of presentation. The patient was admitted with diagnosis of GI bleed and saw gastroenterology in consultation. Colonoscopy was completed on 06/15 which revealed Normal terminal ileum with no blood visualized in the terminal ileum and Large amount of fresh red blood throughout the entire colon, significantly limiting views. Extensive amount of flushing and suctioning was performed in order to cleanse the colon as much as possible to obtain adequate views. There was significant diverticulosis seen throughout the sigmoid descending transverse and distal ascending colon. However, no active blood loss was seen. Post procedure, Patient's hemoglobin dropped significantly unclear if she had a third bleed or if this was just the equilibration from the second bleed. The patient was noted to have another very small episode of bleeding on 06/18/2020 and was monitored for 24 hours with no further bleeding and continued stabilization of hemoglobin greater than 10.0. Therefore, the patient was noted not to be bleeding any further (> 24hrs) and was felt to have received maximal hospital benefit for discharge. Dedicated discharge time 35 minutes. Disposition: - TO HOME OR SELFCARE Time spent for discharge: 35 Core Measure Documentation - Palliative Care Palliative Care/ Comfort Measures: Not Applicable - Core Measures Any of the following diagnoses?: none Exam - Constitutional Vitals: Temp Pulse Resp BP Pulse Ox 98.1 F 66 20 133/64 98 06/17/20 07:10 06/17/20 07:10 06/17/20 07:10 06/17/20 07:10 06/17/20 07:10 General appearance: Present: no acute distress, well-nourished - EENT Eyes: Present: PERRL ENT: hearing intact, clear oral mucosa - Neck Neck: Present: supple, normal ROM - Respiratory Respiratory effort: normal Respiratory: bilateral: CTA - Cardiovascular Heart Sounds: Present: S1 & S2. Absent: rub, click - Extremities Extremities: pulses symmetrical, No edema Peripheral Pulses: within normal limits - Abdominal General gastrointestinal: Present: soft, non-tender, non-distended, normal bowel sounds Female genitourinary: Present: normal - Integumentary Integumentary: Present: clear, warm, dry - Musculoskeletal Musculoskeletal: gait normal, strength equal bilaterally - Psychiatric Psychiatric: appropriate mood/affect, intact judgment & insight - Neurologic Neurologic: CNII-XII intact, moves all extremities Plan Activity: advance as tolerated Weight Bearing Status: Weight Bear as Tolerated Diet: regular Follow up with: PRIMARY CARE, [Primary Care Provider] - 3-5 Days Forms: Accompanied Note
--- NOTE | 2020-06-17 08:37 | Progress Note ---
Assessment and Plan Assessment and plan: Acute on chronic blood loss anemia Hemoglobin dropped. Reportedly had bleeding this am (06/16) Continue to monitor H&H Rectal bleeding Colonoscopy yesterday(06/15) with Normal terminal ileum with no blood visualized in the terminal ileum and Large amount of fresh red blood throughout the entire colon, significantly limiting views. Extensive amount of flushing and suctioning was performed in order to cleanse the colon as much as possible to obtain adequate views. There was significant diverticulosis seen throughout the sigmoid descending transverse and distal ascending colon. However, no active blood loss was seen Hypertension Hold losartan for now due to GI bleed Okay to continue diltiazem DVT prophylaxis SCDs only. No anticoagulation due to ongoing GI bleed 06/16. Cont. PRBCs. Recheck CBC. Await GI recs 06/17/2020. Hemoglobin has stabilized at 10.1 after PRBCs. Patient has not no further active bleeding. GI recommends the patient be discharged morning if hemoglobin remains stable. History Interval history: No bleeding since yesterday morning. Hospitalist Physical - Constitutional Vitals: Temp Pulse Resp BP Pulse Ox 98.1 F 66 20 133/64 98 06/17/20 07:10 06/17/20 07:10 06/17/20 07:10 06/17/20 07:10 06/17/20 07:10 General appearance: Present: no acute distress, well-nourished - EENT Eyes: Present: PERRL, EOM intact ENT: hearing intact, clear oral mucosa, dentition normal - Neck Neck: Present: supple, normal ROM - Respiratory Respiratory effort: normal Respiratory: bilateral: CTA - Cardiovascular Rhythm: regular Heart Sounds: Present: S1 & S2. Absent: gallop, rub - Extremities Extremities: no ischemia, No edema, Full ROM - Abdominal General gastrointestinal: soft, non-tender, non-distended, normal bowel sounds - Integumentary Integumentary: Present: clear, warm, dry - Neurologic Neurologic: CNII-XII intact, moves all extremities Results - Labs CBC & Chem 7: 06/17/20 00:43 06/15/20 06:05 Labs: Laboratory Last Values WBC 10.9 K/mm3 (4.5-11.0) 06/15/20 06:05 RBC 2.99 M/mm3 (3.65-5.03) L 06/15/20 06:05 Hgb 10.1 gm/dl (10.1-14.3) D 06/17/20 00:43 Hct 30.5 % (30.3-42.9) D 06/17/20 00:43 MCV 84 fl (79-97) 06/15/20 06:05 MCH 27 pg (28-32) L 06/15/20 06:05 MCHC 32 % (30-34) 06/15/20 06:05 RDW 18.6 % (13.2-15.2) H 06/15/20 06:05 Plt Count 262 K/mm3 (140-440) 06/15/20 06:05 Lymph % (Auto) 34.7 % (13.4-35.0) 06/15/20 06:05 [place] % (Auto) 7.0 % (0.0-7.3) 06/15/20 06:05 Eos % (Auto) 3.0 % (0.0-4.3) 06/15/20 06:05 Baso % (Auto) 0.7 % (0.0-1.8) 06/15/20 06:05 Lymph # (Auto) 3.8 K/mm3 (1.2-5.4) 06/15/20 06:05 [place] # (Auto) 0.8 K/mm3 (0.0-0.8) 06/15/20 06:05 Eos # (Auto) 0.3 K/mm3 (0.0-0.4) 06/15/20 06:05 Baso # (Auto) 0.1 K/mm3 (0.0-0.1) 06/15/20 06:05 Seg Neutrophils % 54.6 % (40.0-70.0) 06/15/20 06:05 Seg Neutrophils # 5.9 K/mm3 (1.8-7.7) 06/15/20 06:05 PT 13.1 Sec. (12.2-14.9) 06/14/20 07:40 INR 1.00 (0.87-1.13) 06/14/20 07:40 APTT 24.3 Sec. (24.2-36.6) 06/14/20 07:40 Sodium 142 mmol/L (137-145) 06/15/20 06:05 Potassium 3.2 mmol/L (3.6-5.0) L 06/15/20 06:05 Chloride 106.7 mmol/L (98-107) 06/15/20 06:05 Carbon Dioxide 22 mmol/L (22-30) 06/15/20 06:05 Anion Gap 17 mmol/L 06/15/20 06:05 BUN 16 mg/dL (7-17) 06/15/20 06:05 Creatinine 0.9 mg/dL (0.6-1.2) 06/15/20 06:05 Estimated GFR > 60 ml/min 06/15/20 06:05 BUN/Creatinine Ratio 18 % 06/15/20 06:05 Glucose 106 mg/dL (65-100) H 06/15/20 06:05 Calcium 8.6 mg/dL (8.4-10.2) 06/15/20 06:05 Magnesium 2.10 mg/dL (1.7-2.3) 06/14/20 07:50 Total Bilirubin 0.50 mg/dL (0.1-1.2) 06/15/20 06:05 Direct Bilirubin < 0.2 mg/dL (0-0.2) 06/14/20 07:50 AST 23 units/L (5-40) 06/15/20 06:05 ALT 13 units/L (7-56) 06/15/20 06:05 Alkaline Phosphatase 72 units/L (35-129) 06/15/20 06:05 Total Creatine Kinase 61 units/L (30-135) 06/14/20 07:50 Total Protein 6.3 g/dL (6.3-8.2) 06/15/20 06:05 Albumin 3.6 g/dL (3.9-5) L 06/15/20 06:05 Albumin/Globulin Ratio 1.3 % 06/15/20 06:05 Blood Type A POSITIVE 06/16/20 05:42 Antibody Screen Negative 06/16/20 05:42 Crossmatch See Detail 06/16/20 05:42 Philip/IV: Voiding Method Toilet IV Catheter Type [Left Hand] INT / Saline Lock IV Catheter Type [Right Hand] INT / Saline Lock Active Medications - Current Medications Current Medications: Generic Name Dose Route Start Last Admin Trade Name Freq PRN Reason Stop Dose Admin Acetaminophen 650 mg 06/14/20 13:19 06/15/20 20:01 Tylenol PO 650 mg Q4H PRN Administration Pain MILD(1-3)/Fever >100.5/MAHMOOD Diltiazem HCl 240 mg 06/15/20 10:00 06/16/20 11:10 Cardizem Cd PO 240 mg DAILY KEILA Administration Sodium Chloride 1,000 mls @ 50 mls/hr 06/15/20 12:00 06/16/20 21:40 Nacl 0.9% 1000 Ml IV Infused DIRECT KEILA Infusion Naphazoline HCl/Pheniramine Maleate 2 drops 06/14/20 17:25 Visine-A OU Q6H PRN Allergic Reaction Ondansetron HCl 4 mg 06/14/20 13:19 Zofran IV Q8H PRN Nausea And Vomiting Sodium Chloride 10 ml 06/14/20 22:00 06/16/20 21:42 Sodium Chloride Flush Syringe 10 Ml IV Not Given BID KEILA Sodium Chloride 10 ml 06/14/20 13:19 Sodium Chloride Flush Syringe 10 Ml IV PRN PRN LINE FLUSH
[2020-06-17 08:39] LABS: Hematocrit 30.5 % (30.3-42.9); Hemoglobin 10.2 gm/dl (10.1-14.3)
[2020-06-17] MEDS: dilTIAZem CD 240 MG CAP PO SCH (10:31)
--- NOTE | 2020-06-17 13:29 | Gastroenterology Progress Note ---
Assessment and Plan Patient's hemoglobin dropped significantly but much better s/p PRBC today, therefore she can be discharged tomorrow AM with outpatient followup if hgb stable and no more bleeding If however patient has severe bleeding with hemodynamic instability I recommend stat bleeding scan with interventional radiology consultation as they will have a higher likelihood of success in that clinical situation of isolating and treating the source of the bleeding than GI will Given patient's improvement and anticipated discharge tomorrow morning GI will sign off. If patient rebleeds please call us back - Patient Problems (1) LGI bleed Current Visit: Yes Status: Acute Subjective Date of service: 06/17/20 Principal diagnosis: GI bleed Interval history: Patient reports no more GI bleeding. Hemoglobin up status post transfusion She denies shortness of breath or abdominal pain Objective - Constitutional Vitals: Temp Pulse Resp BP Pulse Ox 98.3 F 68 20 146/60 95 06/17/20 11:20 06/17/20 11:20 06/17/20 11:25 06/17/20 11:20 06/17/20 11:20 General appearance: no acute distress - Respiratory Respiratory effort: normal - Gastrointestinal General gastrointestinal: Present: soft, non-tender - Integumentary Integumentary: Present: dry - Neurologic Neurological: alert and oriented x3 - Labs CBC & Chem 7: 06/17/20 07:52 06/15/20 06:05 Labs: Laboratory Results - last 24 hr 06/16/20 06/17/20 06/17/20 05:42 00:43 07:52 Hgb 10.1 D 10.2 Hct 30.5 D 30.5 Blood Type A POSITIVE Antibody Screen Negative Crossmatch See Detail
[2020-06-17 15:30] LABS: Hematocrit 29.1 % (30.3-42.9); Hemoglobin 9.7 gm/dl (10.1-14.3)
[2020-06-18 06:25] LABS: Hematocrit 30.9 % (30.3-42.9); Hemoglobin 10.3 gm/dl (10.1-14.3); Mean Corpuscular HGB Conc 33 % (30-34); Mean Corpuscular Volume 87 fl (79-97); Platelet Count 242 K/mm3 (140-440); Red Blood Count 3.56 M/mm3 (3.65-5.03); Red Cell Distribution Width 16.2 % (13.2-15.2)
[2020-06-18 06:47] LABS: BUN/Creatinine Ratio 7; Blood Urea Nitrogen 6 mg/dL (7-17); Hemolysis Index 4
[2020-06-18 08:16] LABS: Basophils % (Auto) 0.3 % (0.0-1.8); Eosinophils # (Auto) 0.5 K/mm3 (0.0-0.4); Eosinophils % (Auto) 4.8 % (0.0-4.3); Lymphocytes # (Auto) 3.2 K/mm3 (1.2-5.4); Lymphocytes % (Auto) 28.8 % (13.4-35.0); Monocytes # (Auto) 0.8 K/mm3 (0.0-0.8); Monocytes % (Auto) 7.3 % (0.0-7.3)
[2020-06-18 11:18] LABS: Hematocrit 30.5 % (30.3-42.9)
--- NOTE | 2020-06-18 11:27 | Progress Note ---
Assessment and Plan Assessment and plan: Acute on chronic blood loss anemia Hemoglobin dropped. Reportedly had bleeding this am (06/16) Continue to monitor H&H Rectal bleeding Colonoscopy yesterday(06/15) with Normal terminal ileum with no blood visualized in the terminal ileum and Large amount of fresh red blood throughout the entire colon, significantly limiting views. Extensive amount of flushing and suctioning was performed in order to cleanse the colon as much as possible to obtain adequate views. There was significant diverticulosis seen throughout the sigmoid descending transverse and distal ascending colon. However, no active blood loss was seen Hypertension Hold losartan for now due to GI bleed Okay to continue diltiazem DVT prophylaxis SCDs only. No anticoagulation due to ongoing GI bleed 06/16. Cont. PRBCs. Recheck CBC. Await GI recs 06/17/2020. Hemoglobin has stabilized at 10.1 after PRBCs. Patient has not no further active bleeding. GI recommends the patient be discharged morning if hemoglobin remains stable. 06/18/2020. Patient reports bleeding this morning and GI has been called back to evaluate. Recheck CBC today. Continue Protonix History Interval history: Patient reports bleeding this morning. Hospitalist Physical - Constitutional Vitals: Temp Pulse Resp BP Pulse Ox 98.9 F 79 18 143/75 95 06/18/20 07:04 06/18/20 07:04 06/18/20 07:04 06/18/20 07:04 06/18/20 07:04 General appearance: Present: no acute distress, well-nourished - EENT Eyes: Present: PERRL, EOM intact ENT: hearing intact, clear oral mucosa, dentition normal - Neck Neck: Present: supple, normal ROM - Respiratory Respiratory effort: normal Respiratory: bilateral: CTA - Cardiovascular Rhythm: regular Heart Sounds: Present: S1 & S2. Absent: gallop, rub - Extremities Extremities: no ischemia, No edema, Full ROM - Abdominal General gastrointestinal: soft, non-tender, non-distended, normal bowel sounds - Integumentary Integumentary: Present: clear, warm, dry - Neurologic Neurologic: CNII-XII intact, moves all extremities Results - Labs CBC & Chem 7: 06/18/20 10:28 06/18/20 05:53 Labs: Laboratory Last Values WBC 10.4 K/mm3 (4.5-11.0) 06/18/20 05:53 RBC 3.56 M/mm3 (3.65-5.03) L 06/18/20 05:53 Hgb 10.0 gm/dl (10.1-14.3) L 06/18/20 10:28 Hct 30.5 % (30.3-42.9) 06/18/20 10:28 MCV 87 fl (79-97) 06/18/20 05:53 MCH 29 pg (28-32) 06/18/20 05:53 MCHC 33 % (30-34) 06/18/20 05:53 RDW 16.2 % (13.2-15.2) H 06/18/20 05:53 Plt Count 242 K/mm3 (140-440) 06/18/20 05:53 Lymph % (Auto) 28.8 % (13.4-35.0) 06/18/20 05:53 Lyon % (Auto) 7.3 % (0.0-7.3) 06/18/20 05:53 Eos % (Auto) 4.8 % (0.0-4.3) H 06/18/20 05:53 Baso % (Auto) 0.3 % (0.0-1.8) 06/18/20 05:53 Lymph # (Auto) 3.2 K/mm3 (1.2-5.4) 06/18/20 05:53 Lyon # (Auto) 0.8 K/mm3 (0.0-0.8) 06/18/20 05:53 Eos # (Auto) 0.5 K/mm3 (0.0-0.4) H 06/18/20 05:53 Baso # (Auto) 0.0 K/mm3 (0.0-0.1) 06/18/20 05:53 Add Manual Diff Complete 06/18/20 05:53 Seg Neutrophils % 58.8 % (40.0-70.0) 06/18/20 05:53 Nucleated RBC % Not Reportable 06/18/20 05:53 Seg Neutrophils # 6.4 K/mm3 (1.8-7.7) 06/18/20 05:53 WBC Morphology Not Reportable 06/18/20 05:53 Hypersegmented Neuts Not Reportable 06/18/20 05:53 Hyposegmented Neuts Not Reportable 06/18/20 05:53 Hypogranular Neuts Not Reportable 06/18/20 05:53 Smudge Cells Not Reportable 06/18/20 05:53 Toxic Granulation Not Reportable 06/18/20 05:53 Toxic Vacuolation Not Reportable 06/18/20 05:53 Dohle Bodies Not Reportable 06/18/20 05:53 Pelger-Huet Anomaly Not Reportable 06/18/20 05:53 Ana Rods Not Reportable 06/18/20 05:53 Platelet Estimate Not Reportable 06/18/20 05:53 Clumped Platelets Not Reportable 06/18/20 05:53 Plt Clumps, EDTA Not Reportable 06/18/20 05:53 Large Platelets Not Reportable 06/18/20 05:53 Giant Platelets Not Reportable 06/18/20 05:53 Platelet Satelliting Not Reportable 06/18/20 05:53 Plt Morphology Comment Not Reportable 06/18/20 05:53 RBC Morphology Not Reportable 06/18/20 05:53 Dimorphic RBCs Not Reportable 06/18/20 05:53 Polychromasia Not Reportable 06/18/20 05:53 Hypochromasia Not Reportable 06/18/20 05:53 Poikilocytosis Not Reportable 06/18/20 05:53 Anisocytosis Not Reportable 06/18/20 05:53 Microcytosis Not Reportable 06/18/20 05:53 Macrocytosis Not Reportable 06/18/20 05:53 Spherocytes Not Reportable 06/18/20 05:53 Pappenheimer Bodies Not Reportable 06/18/20 05:53 Sickle Cells Not Reportable 06/18/20 05:53 Target Cells Not Reportable 06/18/20 05:53 Tear Drop Cells Not Reportable 06/18/20 05:53 Ovalocytes Not Reportable 06/18/20 05:53 Helmet Cells Not Reportable 06/18/20 05:53 Adam-Santo Bodies Not Reportable 06/18/20 05:53 Hornick Rings Not Reportable 06/18/20 05:53 John Cells Not Reportable 06/18/20 05:53 Bite Cells Not Reportable 06/18/20 05:53 Crenated Cell Not Reportable 06/18/20 05:53 Elliptocytes Not Reportable 06/18/20 05:53 Acanthocytes (Spur) Not Reportable 06/18/20 05:53 Rouleaux Not Reportable 06/18/20 05:53 Hemoglobin C Crystals Not Reportable 06/18/20 05:53 Schistocytes Not Reportable 06/18/20 05:53 Malaria parasites Not Reportable 06/18/20 05:53 Simeon Bodies Not Reportable 06/18/20 05:53 Hem Pathologist Commnt Not Reportable 06/18/20 05:53 PT 13.1 Sec. (12.2-14.9) 06/14/20 07:40 INR 1.00 (0.87-1.13) 06/14/20 07:40 APTT 24.3 Sec. (24.2-36.6) 06/14/20 07:40 Sodium 141 mmol/L (137-145) 06/18/20 05:53 Potassium 3.6 mmol/L (3.6-5.0) 06/18/20 05:53 Chloride 108.1 mmol/L (98-107) H 06/18/20 05:53 Carbon Dioxide 23 mmol/L (22-30) 06/18/20 05:53 Anion Gap 14 mmol/L 06/18/20 05:53 BUN 6 mg/dL (7-17) L 06/18/20 05:53 Creatinine 0.9 mg/dL (0.6-1.2) 06/18/20 05:53 Estimated GFR > 60 ml/min 06/18/20 05:53 BUN/Creatinine Ratio 7 % 06/18/20 05:53 Glucose 94 mg/dL (65-100) 06/18/20 05:53 Calcium 9.0 mg/dL (8.4-10.2) 06/18/20 05:53 Magnesium 2.10 mg/dL (1.7-2.3) 06/14/20 07:50 Total Bilirubin 0.50 mg/dL (0.1-1.2) 06/15/20 06:05 Direct Bilirubin < 0.2 mg/dL (0-0.2) 06/14/20 07:50 AST 23 units/L (5-40) 06/15/20 06:05 ALT 13 units/L (7-56) 06/15/20 06:05 Alkaline Phosphatase 72 units/L (35-129) 06/15/20 06:05 Total Creatine Kinase 61 units/L (30-135) 06/14/20 07:50 Total Protein 6.3 g/dL (6.3-8.2) 06/15/20 06:05 Albumin 3.6 g/dL (3.9-5) L 06/15/20 06:05 Albumin/Globulin Ratio 1.3 % 06/15/20 06:05 Blood Type A POSITIVE 06/16/20 05:42 Antibody Screen Negative 06/16/20 05:42 Crossmatch See Detail 06/16/20 05:42 Philip/IV: Voiding Method Toilet IV Catheter Type [Right Peripheral IV Forearm] IV Catheter Type [Left Hand] INT / Saline Lock IV Catheter Type [Right Hand] INT / Saline Lock Active Medications - Current Medications Current Medications: Generic Name Dose Route Start Last Admin Trade Name Freq PRN Reason Stop Dose Admin Acetaminophen 650 mg 06/14/20 13:19 06/15/20 20:01 Tylenol PO 650 mg Q4H PRN Administration Pain MILD(1-3)/Fever >100.5/MAHMOOD Diltiazem HCl 240 mg 06/15/20 10:00 06/17/20 10:31 Cardizem Cd PO 240 mg DAILY KEILA Administration Sodium Chloride 1,000 mls @ 50 mls/hr 06/15/20 12:00 06/16/20 21:40 Nacl 0.9% 1000 Ml IV Infused DIRECT KEILA Infusion Naphazoline HCl/Pheniramine Maleate 2 drops 06/14/20 17:25 Visine-A OU Q6H PRN Allergic Reaction Ondansetron HCl 4 mg 06/14/20 13:19 Zofran IV Q8H PRN Nausea And Vomiting Sodium Chloride 10 ml 06/14/20 22:00 06/17/20 21:25 Sodium Chloride Flush Syringe 10 Ml IV 10 ml BID KEILA Administration Sodium Chloride 10 ml 06/14/20 13:19 Sodium Chloride Flush Syringe 10 Ml IV PRN PRN LINE FLUSH
[2020-06-18] MEDS: dilTIAZem CD 240 MG CAP PO SCH (11:48)
[2020-06-19 05:42] LABS: Basophils # (Auto) 0.1 K/mm3 (0.0-0.1); Basophils % (Auto) 0.6 % (0.0-1.8); Eosinophils # (Auto) 0.3 K/mm3 (0.0-0.4); Hematocrit 31.5 % (30.3-42.9); Hemoglobin 10.7 gm/dl (10.1-14.3); Lymphocytes # (Auto) 2.4 K/mm3 (1.2-5.4); Lymphocytes % (Auto) 21.7 % (13.4-35.0); Mean Corpuscular HGB Conc 34 % (30-34); Mean Corpuscular Volume 86 fl (79-97); Monocytes # (Auto) 0.6 K/mm3 (0.0-0.8); Monocytes % (Auto) 5.8 % (0.0-7.3); Platelet Count 280 K/mm3 (140-440); Red Blood Count 3.68 M/mm3 (3.65-5.03); Red Cell Distribution Width 16.4 % (13.2-15.2)
[2020-06-19 06:03] LABS: BUN/Creatinine Ratio 6; Blood Urea Nitrogen 6 mg/dL (7-17); Calcium 9.1 mg/dL (8.4-10.2); Hemolysis Index 3
[2020-06-19 07:54] VITALS: BP 135/67
--- NOTE | 2020-06-19 08:44 | Gastroenterology Progress Note ---
Assessment and Plan GI bleed - suspected diverticular based on colonoscopy findings. no further hematochezia since yesterday morning, H/H stable. okay to be discharged from gi stand point. pt instructed to return to ER if bleeding reoccurs will sign off, please call as needed Subjective Date of service: 06/19/20 Principal diagnosis: GI bleed Interval history: pt with episode of hematochezia yesterday morning; no further episodes since then. denies abd pain Objective - Constitutional Vitals: Temp Pulse Resp BP Pulse Ox 99.5 F 85 18 135/67 98 06/19/20 06:55 06/19/20 06:53 06/19/20 06:55 06/19/20 06:53 06/19/20 06:53 General appearance: no acute distress - Respiratory Respiratory effort: normal Respiratory: bilateral: CTA - Cardiovascular Rhythm: regular Heart Sounds: Present: S1 & S2 - Gastrointestinal General gastrointestinal: Present: soft, non-tender - Labs CBC & Chem 7: 06/19/20 05:21 06/19/20 05:21 Labs: Laboratory Results - last 24 hr 06/18/20 06/19/20 06/19/20 10:28 05:21 05:21 WBC 10.9 RBC 3.68 Hgb 10.0 L 10.7 Hct 30.5 31.5 MCV 86 MCH 29 MCHC 34 RDW 16.4 H Plt Count 280 Lymph % (Auto) 21.7 Lawrence % (Auto) 5.8 Eos % (Auto) 3.0 Baso % (Auto) 0.6 Lymph # (Auto) 2.4 Lawrence # (Auto) 0.6 Eos # (Auto) 0.3 Baso # (Auto) 0.1 Seg Neutrophils % 68.9 Seg Neutrophils # 7.5 Sodium 141 Potassium 3.5 L Chloride 106.9 Carbon Dioxide 28 Anion Gap 10 BUN 6 L Creatinine 1.0 Estimated GFR > 60 BUN/Creatinine Ratio 6 Glucose 102 H Calcium 9.1
[2020-06-19] MEDS: dilTIAZem CD 240 MG CAP PO SCH (09:37)
== END 2020-06-19 16:30 | disposition home or self-care (01) | DRG 378 ==
LOC: ED 04:38 → 3A 08:33 → 3B-SURG 08:36 → OBSVTOIN 06-16 12:17
PROVIDERS: ADMIT Internal Medicine; ATTEND Hospitalist
PROC: 0DJD8ZZ Inspection of Lower Intestinal Tract, Via Natural or Artificial Opening Endoscopic (ICD-10-PCS; principal; 2020-06-15)
PROC: 30233N1 Transfusion of Nonautologous Red Blood Cells into Peripheral Vein, Percutaneous Approach (ICD-10-PCS; 2020-06-16)
DX: K57.31 Diverticulosis of large intestine without perforation or abscess with bleeding (principal); D62 Acute posthemorrhagic anemia; I69.351 Hemiplegia and hemiparesis following cerebral infarction affecting right dominant side; I10 Essential (primary) hypertension; Z88.5 Allergy status to narcotic agent; Z88.8 Allergy status to other drugs, medicaments and biological substances; Z87.891 Personal history of nicotine dependence; Z79.82 Long term (current) use of aspirin; Z90.710 Acquired absence of both cervix and uterus; E78.5 Hyperlipidemia, unspecified
CPT/HCPCS: 36415; 80048; 80053; 80076; 82550; 83735; 85007; 85014; 85018; 85025; 85610; 85730; 86850; 86900; 86901; 86920; 93005; 96374; G0378; J2704; J3480; J7030; J7040; P9016